=== PATIENT | female | born 1950 | race Caucasian/White ===

== ENCOUNTER 2025-04-15 12:12 | Inpatient (IN) ==
[2025-04-15 12:39] LABS: Hematocrit (blood only) 27.9 % (37.0-47.0); Hemoglobin 8.1 g/dl (12.0-16.0); Immature Granulocytes # (auto) 0.06 K/uL (0.01-0.20); Immature Granulocytes % (auto) 0.5 %; Mean Corpuscular Hemoglobin 18.4 pg (25.0-34.0); Mean Corpuscular Volume 63.3 fL (80.0-100.0); RDW Standard Deviation 42.3 fL (36.4-46.3); Red Blood Count 4.41 M/uL (4.20-5.40); White Blood Count 11.62 K/ul (4.8-10.8)
[2025-04-15 12:42] LABS: Platelet Count 628 K/uL (130-400)
[2025-04-15 12:59] LABS: Microcytosis Present; Ovalocytes 1+; Spherocytes 1+
[2025-04-15] MEDS: ACETAMINOPHEN 1,000 MG/100 ML VIAL IV STA (12:59)
[2025-04-15] MEDS: ONDANSETRON INJ 2 MG/ML 2 ML VIAL IV STA (12:59)
[2025-04-15 13:02] LABS: Alanine Aminotransferase 9.0 U/L (7-52); Albumin Globulin Ratio 1.0 (0.9-2); Alkaline Phosphatase 55.0 U/L (34-104); Anion Gap 14.0 (3-11); Bilirubin,Total 0.5 mg/dl (0.2-1.0); Blood Urea Nitrogen 12.0 mg/dl (6-23); Calcium 9.5 mg/dl (8.6-10.3); Carbon Dioxide 29.0 mmol/L (21-32); Chloride 91.0 mmol/L (98-107); Creatinine Clr Calc Pharmacy 51.5 ml/min; Globulin 3.6 gm/dl (2.5-4.0); Glucose 142.0 mg/dl (70-99(Fasting)); Lipase 33.0 U/L (11-82); Potassium 2.6 mmol/L (3.5-5.1); Sodium 134.0 mmol/L (136-145); Total Protein 7.3 gm/dl (6.0-8.3)
[2025-04-15] MEDS: OPTIRAY 320 100ml IV ONE (13:16)
--- NOTE | 2025-04-15 13:17 | XRay Report ---
XR chest 1V portable CLINICAL HISTORY: chest pain COMPARISON STUDY: None FINDINGS: Left cardiac pacemaker is present. Heart size and pulmonary vasculature are normal. No cons olidation or pleural effusion. No pneumothorax. IMPRESSION: No acute findings. ACT 112: Negative or not required by law. Electronically signed by: Shashank Vyas M.D. 04/15/2025 1:15 PM
[2025-04-15 13:24] LABS: Appearance Urine Clear (Clear); Bacteria Urine Automated None Seen (None Seen); Cast Urine Automated 0-2 /lpf (0-2); Glucose Urine UA Negative (Negative); RBC Urine Automated 0-2 /hpf (0-2)
[2025-04-15] MEDS: SODIUM CHLORIDE 0.9% 1,000 ML IV ONE (13:24)
[2025-04-15] MEDS: POTASSIUM CHLORIDE / WTR 10 MEQ/100 ML PLCT IV SCH ×3 (13:24→23:26)
--- NOTE | 2025-04-15 13:28 | Emergency Department Note ---
ED Visit Note I was consulted by the Advanced Practice Provider, GUADALUPE Smith. I personally made/approved the management plan and take responsibility for the patient management. I performed a substantive portion of the visit. This includes the aspects of: -History/Physical/Personally seeing the patient -MDM .
--- NOTE | 2025-04-15 13:44 | CT Scan Report ---
ABDOMEN AND PELVIS CT WITH IV CONTRAST CT DOSE: 1135.68 mGy.cm HISTORY: Acute lower abdominal pain with diarrhea lower abd pain TECHNIQUE: Multiaxial CT images of the abdomen and pelvis were performed following the IV administrat ion of 93 cc of Optiray, A dose lowering technique was utilized adhering to the principles of ALARA. COMPARISON STUDY: None. FINDINGS: Cardiomegaly with partially imaged pacer leads. Clustered tree-in-bud nodules of the basal right lower lobe measure up to 4 mm. This is nonspecific, favored to be infectious or inflammatory. N o pneumatosis or pneumoperitoneum. Unremarkable spleen, pancreas, adrenal glands and liver. Tiny gall stone. No CT evidence of acute cholecystitis. There is patency of the hepatic and portal veins. There are a few hypodense foci of the kidneys measuring up to 12 mm in the left which are nonspecific. The se measure slightly above water attenuation. Decompressed bladder with wall thickening. Uterus is lik toma surgically absent. No abdominal aortic aneurysm. Nonspecific mildly enlarged right iliac chain ly mph node measures 11 mm in image 251. Trace free pelvic fluid. Colonic diverticulosis without acute diverticulitis. The cecum is displaced within the left mid abdomen and there is an ileocecal intussusception. Wall thickening of the distal ileum and cecum is noted with adjacent interloop edema and increased enhancement of the bowel paul. Enlarged lymph nodes in the ileocolic mesentery measuring up to 1.9 x 1.4 cm. No bone lesions. Unrema rkable soft tissues. : IMPRESSION: 1. The cecum is present within the left mid abdomen and there is an ileocolic intussusception. Associ ated wall thickening at the intussusception site is noted with mucosal hyperemia compatible with veno us engorgement. Mucosal mass serving as a lead point is the diagnosis of exclusion, however is not de finitively seen. Surgical consultation is needed. 2. No bowel obstruction, pneumatosis or pneumoperitoneum. 3. Pathologically enlarged ileocolic and right iliac chain lymph nodes. ACT 112: Positive. There are findings on this exam that require communication between the performing entity and the patient following Patient Test Result Information Act ([place] Act 112) guidelines. The above report was generated using voice recognition software. It may contain grammatical, syntax o r spelling errors. Electronically signed by: Sam Merino M.D. 04/15/2025 1:43 PM
--- NOTE | 2025-04-15 14:59 | Emergency Department Note ---
Impression & Plan Intussusception, Anemia, Hypokalemia ED Provider Note CHIEF COMPLAINT: Lower abdominal pain HISTORY OF PRESENTING ILLNESS: Patient is a 75-year-old female presents to the emergency department today for lower abdominal pain. She states the pain does come and go in spurts but when it comes it is pretty severe where she is bending over. Her current pain is a 2/10. When the pain does get severe it is a 10/10. She reports moving her bowels and for the past 5 days has had diarrhea. She does have some associated nausea but no vomiting. She denies any fevers or chills. Denies any blood in her stool or urine. Denies any chest pain, shortness of breath, breathing difficulties. Patient does have a pacemaker that was placed at [facility] in [place]. She states that she has moved to the area from [place] a few years ago and has not really had much medical care while here aside from a cardiac issues. She does deny any surgical history to the abdomen. Last p.o. intake was this morning at 7 AM when she tried toast and a cup of tea. REVIEW OF SYSTEMS: See HPI for pertinent positives and pertinent negatives. ALLERGIES: See below MEDICATIONS: See below PAST MEDICAL HISTORY: See below PHYSICAL EXAM: VITALS: Vitals are noted on the nurse's note and reviewed by myself. GENERAL: Non toxic, in no acute distress, non-diaphoretic. SKIN: Capillary refill <2 sec. EYES: PERRLA. EOMI. Conjunctivae without injection, sclerae without icterus. NOSE: Patent without discharge. MOUTH: Mucous membranes moist. Uvula midline. Airway patent. NECK: Supple without nuchal rigidity. HEART: Regular rate and rhythm without murmurs gallops or rubs. LUNGS: Clear to auscultation bilaterally without wheezes, rales or rhonchi. No retractions or accessory muscle use. ABDOMEN: Positive bowel sounds x 4. Normal tympanic percussion. Soft, nontender to palpation. No masses or hepatosplenomegaly. Winn sign negative. No CVA tenderness. No guarding, rigidity, or rebound tenderness. No focal RLQ or LLQ tenderness. MUSCULOSKELETAL: Range of motion intact in all extremities. No gross musculoskeletal defects. NEURO: Patient was alert and oriented. No focal neurological deficits. DIFFERENTIAL DIAGNOSIS: Differential diagnosis includes appendicitis, diverticulitis, bowel obstruction, inflammatory bowel disease, renal colic, PUD, biliary pathology, pancreatitis, mesenteric ischemia, aortic pathology, infection, genitourinary, UTI, perforated viscus, among others. ED COURSE AND MEDICAL DECISION MAKING: HISTORY FROM INDEPENDENT HISTORIAN: History was provided by the patient. MONITOR: Continuous cardiac surgeon: Order was placed for continuous cardiac surgeon. Patient was placed on the cardiac surgeon and continuous pulse ox. Patient was noted to be in normal sinus rhythm at an initial rate of 70 bpm per my interpretation. EKG: EKG was interpreted by myself as atrial sensed ventricular paced rhythm with prolonged AV conduction at a rate of 73 bpm. INTERPRETATION OF LABS: I interpreted the labs with full lab results as below in the lab section of this note. Laboratory results pertinent to the emergent complaint are discussed in the MDM section below. The patient was advised to follow up with their PCP and/or specialist(s) for further outpatient monitoring and management of any abnormal results. INTERPRETATION OF IMAGING: Imaging studies were interpreted by myself and read by radiology as per the imaging section of this note. The patient was advised to follow up with their PCP and/or specialist(s) for further outpatient management of any non-emergent abnormal findings. CHRONIC MEDICAL/SOCIAL CONDITIONS AFFECTING CARE: No social concerns were identified as barriers to patients care. EXTERNAL RECORDS REVIEWED: Patient's cardiology records from [facility]. I also reviewed the patient's lab work from July to compare hemoglobin. ESCALATION OF CARE CONSIDERED: I considered admission on this patient due to the anemia and hypokalemia as well as the patient's ileocolic intussusception CONSULTATIONS: I had a meaningful discussion about this patient with Dr. Balbuena who agrees with my assessment and the treatment plan. I consulted with Dr. Prashanth Zapata from general surgery who recommends consulting consulting with [facility] Dr. Prashanth Zapata from general surgery who recommends consulting with [facility] first. I then consulted with Dr. Varma and Dr. Devine from [facility] who state that the patient would be fine for outpatient management if I felt she was stable enough. We otherwise could transfer her to [place] for surgery tomorrow morning by colorectal surgeon he will be there. SUMMARY: I examined the patient for complaints of lower abdominal pain. A physical exam and history were performed. Nursing notes, EMR, and medication list were personally reviewed. CBC showed a mild leukocytosis with a white blood cell count of 11.62, anemia with a hemoglobin of 8.1, platelet count of 628. CMP did show a sodium of 134, potassium of 2.6, chloride of 91, anion gap of 14, glucose of 142, AST of 12. Urinalysis did show +1 leukocytes, 11-20 white blood cells, negative nitrates. Chest x-ray showed no acute findings. CT of the abdomen and pelvis did show an ileocolic intussusception with wall thickening at the site. There is a mucosal mass serving as a lead point the diagnosis of exclusion. There is no bowel obstruction however there is bulky adenopathy. This does raise concern for carcinoma. The patient declines a history of any type of cancer. The patient was given 2- 10 mill equivalent bags of potassium IV in the emergency department with 1 L of normal saline. She was given a gram of IV Tylenol with improvement in pain and discomfort. She was also given Zofran 4 mg with improvement in nausea and vomiting. I discussed all these above findings with the patient who verbalized understanding. I did consult with Dr. Prashanth Zapata from general surgery who had recommended consulting with [facility]. I then contacted [facility] and spoke with Dr. Varma and Dr. Devine who feel the patient is suitable for outpatient follow-up for surgical consult or we can transfer her to [facility] for surgery tomorrow morning with the surgeon who will be there.. However with the patient's anemia and hypokalemia I felt this was not suitable for the patient at this time. I did call Dr. Zapata back who did then agree to see the patient and put her on the OR schedule for tomorrow morning. I then spoke with Gina Peters PA-C who spoke with Dr. Flores and the patient was accepted for admission to the hospital. DIAGNOSIS: Ileocolic intusseption, anemia, hypokalemia, diarrhea TREATMENT PLAN/DISCHARGE INSTRUCTIONS: Admit to hospitalist services under Dr. Rodriguez Past Med/Surg History Problem List (Updated 04/15/25 @ 15:39 by GUADALUPE Hui) Hypokalemia (Acute) Anemia (Acute) Intussusception (Acute) Medical History Depression Chronic kidney disease, stage 3a Hypertension Cardiac pacemaker in situ AV block, 3rd degree DANYEL (obstructive sleep apnea) COPD (chronic obstructive pulmonary disease) Dyslipidemia Type 2 diabetes mellitus Surgical History History of breast biopsy Family History Mother Hypertension Father Hypertension Heart disease Dyslipidemia Social History Smoking Status: Former smoker Tobacco Type: Cigarettes Smoking End Date: 1974; Do You Dip or Chew Tobacco: No; Hx Alcohol Use: No Hx Substance Use: No Preferred Language: Swazi Feels Safe at Home: Yes Allergies Allergies Allergy/AdvReac Type Severity Reaction Status Date / Time azithromycin [From Zithromax] Allergy Intermediate Verified 04/15/25 12:48 lisinopril Allergy Intermediate Verified 04/15/25 12:48 Penicillins Allergy Intermediate Verified 04/15/25 12:48 Home Meds Home Medications Medication Instructions Recorded Confirmed ezetimibe 10 mg tablet 0 mg PO DAILY 07/17/24 04/15/25 glipizide 10 mg tablet, extended 20 mg PO QAM 07/17/24 04/15/25 release 24 hr hydrochlorothiazide 25 mg tablet 25 mg PO DAILY 07/17/24 04/15/25 metformin 500 mg tablet,extended 500 - 1,000 mg PO DIRECTED 07/17/24 04/15/25 release 24 hr metoprolol tartrate 25 mg tablet 25 mg PO BID 07/17/24 04/15/25 rosuvastatin 40 mg tablet 40 mg PO DAILY 07/17/24 04/15/25 spironolactone 25 mg tablet 12.5 mg PO DAILY 07/17/24 04/15/25 albuterol sulfate 90 mcg/actuation 2 puff inhalation Q4H PRN Wheezing 04/15/25 04/15/25 aerosol inhaler hydralazine 25 mg tablet 25 mg PO TID 04/15/25 04/15/25 Results & Data (ED) Vital Signs Vital Signs - 24 hr 04/15/25 12:15 04/15/25 12:33 04/15/25 12:48 Temperature 36.7 C Temperature Source Temporal Artery Scan Pulse Rate 97 H 74 Pulse Rate [Apical] 74 Respiratory Rate 18 16 Respiratory Effort / Characteristics Non-Labored Spontaneous Non-Labored Spontaneous Respiratory Depth Normal Respiratory Pattern Regular Blood Pressure 114/76 Blood Pressure [Right Arm] 142/70 H Blood Pressure Mean 88 Blood Pressure Mean [Right Arm] 94 Blood Pressure Position [Right Arm] Pulse Oximetry 99 98 Oxygen Delivery Method Room Air Room Air Sepsis Recent Fever Within 48 Hours No Sepsis New/Unexplained Change in Mental Status N/A Sepsis Action Taken by Nursing No Action Required 04/15/25 14:13 04/15/25 16:00 Temperature Temperature Source Pulse Rate Pulse Rate [Apical] 69 70 Respiratory Rate 16 16 Respiratory Effort / Characteristics Non-Labored Spontaneous Non-Labored Spontaneous Respiratory Depth Respiratory Pattern Blood Pressure Blood Pressure [Right Arm] 111/71 124/76 Blood Pressure Mean Blood Pressure Mean [Right Arm] 84 92 Blood Pressure Position [Right Arm] Lying Pulse Oximetry 96 99 Oxygen Delivery Method Room Air Room Air Sepsis Recent Fever Within 48 Hours Sepsis New/Unexplained Change in Mental Status Sepsis Action Taken by Nursing Laboratory Data 04/15/25 12:20 04/15/25 12:20 Lab Results 04/15/25 04/15/25 04/15/25 Range/Units 12:20 13:03 13:56 WBC 11.62 H (4.8-10.8) K/ul RBC 4.41 (4.20-5.40) M/uL Hgb 8.1 L (12.0-16.0) g/dl Hct 27.9 L (37.0-47.0) % MCV 63.3 L (80.0-100.0) fL MCH 18.4 L (25.0-34.0) pg MCHC 29.0 L (32.0-36.0) g/dL RDW Std Deviation 42.3 (36.4-46.3) fL RDW Coeff of Falguni 19.7 H (11.5-14.5) % Plt Count 628 H (130-400) K/uL MPV 8.4 L (9.4-12.4) fL Immature Gran % (Auto) 0.5 % Neut % (Auto) 74.0 % Lymph % (Auto) 15.0 % [place] % (Auto) 9.3 % Eos % (Auto) 0.7 % Baso % (Auto) 0.5 % Neut # (Auto) 8.60 H (1.40-6.50) K/uL Lymph # (Auto) 1.74 (1.20-3.40) K/uL [place] # (Auto) 1.08 H (0.11-0.59) K/uL Eos # (Auto) 0.08 (0.00-0.50) K/uL Baso # (Auto) 0.06 (0.00-0.20) K/uL Immature Gran # (Auto) 0.06 (0.01-0.20) K/uL Microcytosis Present Spherocytes 1+ Ovalocytes 1+ Sodium 134 L (136-145) mmol/L Potassium 2.6 L (3.5-5.1) mmol/L Chloride 91 L (98-107) mmol/L Carbon Dioxide 29 (21-32) mmol/L Anion Gap 14 H (3-11) BUN 12 (6-23) mg/dl Creatinine 0.97 (0.6-1.2) mg/dl Est Cr Clr Drug Dosing 51.5 ml/min eGFR 60.56 BUN/Creatinine Ratio 12.4 (10-20) Glucose 142 H (70-99(Fasting)) mg/dl Calcium 9.5 (8.6-10.3) mg/dl Total Bilirubin 0.5 (0.2-1.0) mg/dl AST 12 L (13-39) U/L ALT 9 (7-52) U/L Alkaline Phosphatase 55 (34-104) U/L Troponin I High Sens 10.1 (0-14) pg/ml Total Protein 7.3 (6.0-8.3) gm/dl Albumin 3.7 (3.4-5.0) gm/dl Globulin 3.6 (2.5-4.0) gm/dl Albumin/Globulin Ratio 1.0 (0.9-2) Lipase 33 (11-82) U/L Urine Color Yellow Urine Appearance Clear (Clear) Urine pH >= 9.0 H (4.5-7.5) Ur Specific [place] 1.017 (1.000-1.030) Urine Protein 2+ H (Negative) Urine Glucose (UA) Negative (Negative) Urine Ketones Trace H (Negative) Urine Blood Negative (Negative) Urine Nitrite Negative (Negative) Urine Bilirubin Negative (Negative) Urine Urobilinogen Positive H (Negative) Ur Leukocyte Esterase 1+ H (Negative) Urine WBC (Auto) 11-20 H (0-5) /hpf Urine RBC (Auto) 0-2 (0-2) /hpf U Hyaline Cast (Auto) 0-2 (0-2) /lpf U Epithel Cells (Auto) 6-10 H (0-2) /hpf Urine Bacteria (Auto) None Seen (None Seen) Urine Comment Blood Type AB Positive Antibody Screen NEGATIVE Administered Medications Discontinued Medications Acetaminophen (Ofirmev) 1,000 mg in 100 mls @ 400 mls/hr IV NOW STA Stop: 04/15/25 13:04 Last Infusion: 04/15/25 13:16 Dose: Infused Documented By: Admin: 04/15/25 12:59 Dose: 400 mls/hr Documented By: URVASHI Potassium Chloride (K Arnulfo / Wtr) 10 meq in 100 mls @ 100 mls/hr IV Q1H DAMIR Stop: 04/15/25 15:14 Last Infusion: 04/15/25 15:49 Dose: Infused Documented By: Admin: 04/15/25 15:21 Dose: 100 mls/hr Documented By: Infusion: 04/15/25 14:42 Dose: Infused Documented By: Admin: 04/15/25 13:24 Dose: 100 mls/hr Documented By: TEVIN Sodium Chloride (Nss) 1,000 mls @ 500 mls/hr IV .Q2H ONE Stop: 04/15/25 15:04 Last Infusion: 04/15/25 15:49 Dose: Infused Documented By: Admin: 04/15/25 13:24 Dose: 500 mls/hr Documented By: TEVIN Ioversol (Optiray 320 100ml) 93 ml IV ONCE ONE Stop: 04/15/25 13:17 Last Admin: 04/15/25 13:16 Dose: 93 ml Documented By: EVAN Ondansetron HCl (Ondansetron Inj 2 Mg/Ml 2 Ml Vial) 4 mg IV NOW STA Stop: 04/15/25 12:51 Last Admin: 04/15/25 12:59 Dose: 4 mg Documented By: URVASHI Imaging Data Radiologist's Impression: Abdomen/Pelvis CT 04/15/25 12:[address] WITH IV CONTRAST CT DOSE: 1135.68 mGy.cm HISTORY: Acute lower abdominal pain with diarrhea lower abd pain TECHNIQUE: Multiaxial CT images of the abdomen and pelvis were performed following the IV administration of 93 cc of Optiray, A dose lowering technique was utilized adhering to the principles of ALARA. COMPARISON STUDY: None. FINDINGS: Cardiomegaly with partially imaged pacer leads. Clustered tree-in-bud nodules of the basal right lower lobe measure up to 4 mm. This is nonspecific, favored to be infectious or inflammatory. No pneumatosis or pneumoperitoneum. Unremarkable spleen, pancreas, adrenal glands and liver. Tiny gallstone. No CT evidence of acute cholecystitis. There is patency of the hepatic and portal veins. There are a few hypodense foci of the kidneys measuring up to 12 mm in the left which are nonspecific. These measure slightly above water attenuation. Decompressed bladder with wall thickening. Uterus is likely surgically absent. No abdominal aortic aneurysm. Nonspecific mildly enlarged right iliac chain lymph node measures 11 mm in image 251. Trace free pelvic fluid. Colonic diverticulosis without acute diverticulitis. The cecum is displaced within the left mid abdomen and there is an ileocecal intussusception. Wall thickening of the distal ileum and cecum is noted with adjacent interloop edema and increased enhancement of the bowel paul. Enlarged lymph nodes in the ileocolic mesentery measuring up to 1.9 x 1.4 cm. No bone lesions. Unremarkable soft tissues. : IMPRESSION: 1. The cecum is present within the left mid abdomen and there is an ileocolic intussusception. Associated wall thickening at the intussusception site is noted with mucosal hyperemia compatible with venous engorgement. Mucosal mass serving as a lead point is the diagnosis of exclusion, however is not definitively seen. Surgical consultation is needed. 2. No bowel obstruction, pneumatosis or pneumoperitoneum. 3. Pathologically enlarged ileocolic and right iliac chain lymph nodes. ACT 112: Positive. There are findings on this exam that require communication between the performing entity and the patient following Patient Test Result Information Act ([place] Act 112) guidelines. The above report was generated using voice recognition software. It may contain grammatical, syntax or spelling errors. Electronically signed by: Sam Merino M.D. 04/15/2025 1:43 PM Chest X-Ray 04/15/25 12:49 XR chest 1V portable CLINICAL HISTORY: chest pain COMPARISON STUDY: None FINDINGS: Left cardiac pacemaker is present. Heart size and pulmonary vasculature are normal. No consolidation or pleural effusion. No pneumothorax. IMPRESSION: No acute findings. ACT 112: Negative or not required by law. Electronically signed by: Shashank Vyas M.D. 04/15/2025 1:15 PM Discharge Plan Visit Data Chief Complaint: Abdominal Pain Stated Complaint: pain in abdomen, diarreha, lightheadiness ED Provider: Virgil Balbuena ED Midlevel Provider: Allegra Persaud Discharge Problem: Intussusception, Anemia, Hypokalemia Patient Disposition: Admitted As Inpatient Condition: Good Forms Stand Alone Forms: My [facility] [employer] Prescriptions Prescriptions: No Action hydralazine 25 mg tablet 25 mg PO TID albuterol sulfate 90 mcg/actuation HFA aerosol inhaler 2 puff INHALATION Q4H PRN (Reason: Wheezing) glipizide 10 mg tablet extended release 24hr 20 mg PO QAM spironolactone 25 mg tablet 12.5 mg PO DAILY hydrochlorothiazide 25 mg tablet 25 mg PO DAILY metformin 500 mg tablet extended release 24 hr 500 - 1,000 mg PO DIRECTED Patient Comments: Take 500mg in the morning and 1000mg in the evening ezetimibe 10 mg tablet 0 mg PO DAILY Patient Comments: Last filled 12/29/24 x90 day supply. Unable to verify if pt still taking. Original Directions: 10mg by mouth once daily rosuvastatin 40 mg tablet 40 mg PO DAILY metoprolol tartrate 25 mg tablet 25 mg PO BID Referrals Referrals: Delores Gonzalez DO [Primary Care Provider] - Discharge Problem: Anemia Qualifiers: Anemia type: unspecified type Qualified Code(s): D64.9 - Anemia, unspecified
--- NOTE | 2025-04-15 15:12 | History & Physical Report ---
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 Intussusception Patient presented with abdominal pain x4 days with associated diarrhea CT abdomen revealed ileocolic intussusception with associated wall thickening consistent with venous engorgement and concerning for mucosal mass Surgery consulted and planning for OR in the am for ex lap and hemicolectomy Clear liquid diet until midnight NPO at midnight Pain control with IV tylenol and morphine PRN Anemia Hgb 8.1 here (7.9 yesterday outpatient) which is a drop from previous in Jul 2024 around 12-13 Patient is symptomatic with lightheadedness but hemodynamically stable Recheck H&H at 2200 and in am Transfuse if Hgb <7 Iron studies, vitamin B12, folate in am Hypokalemia K 2.6 on admission Likely secondary to diuretics and diarrhea Received repletion Recheck K at 2200 and in am Continue to replete as needed Hold diuretics Diarrhea Patient reports x20 episodes per day of diarrhea x4 days Could be secondary to intussusception, metformin use, senna use Obtain stool PCR MIVF Type 2 diabetes Hold home metformin and glipizide BSG ACHS and SSI while inpatient Hypertension Continue hydralazine and metoprolol Home diuretics on hold due to hypokalemia and dehydration Dyslipidemia Continue rosuvastatin Cardiac pacemaker in situ Continue baby aspirin DANYEL CPAP HS DVT Prophylaxis: SCDs due to OR tomorrow Code Status: FULL CODE - As per discussion at bedside with the patient. PCP: Delores Gonzalez Disposition: admit to [facility] Patient seen in collaboration with Dr Flores. Please see addendum. I spent a total of 60 minutes coordinating, documenting and providing care for this patient excluding time spent in the performance of separately billed services or time spent by another provider/QHP. 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 She reports sharp lower abdominal pain that is intermittent and associated with diarrhea and nausea without vomiting. The pain is severe when it is there. She has been taking senna on an as needed basis to have bowel movements because she is constipated and thinks it is from her diabetes medication. She usually has one episode of loose stools after senna that subsides. She notes over the last four days, she has had up to 20 episodes of loose diarrhea daily. She denies recent travel or antibiotic use. She also reports feeling lightheaded for the last month, particularly with exertion, but this has been worse over the last few days as well. Denies any syncope. She presented to the PCP yesterday for the abdominal pain, diarrhea, and lightheadedness and was ordered labs and a KUB which showed moderate fecal retention. She sought evaluation in our ED because her symptoms have not improved. Denies fevers, chills, chest pain, SOB, dysuria, hematuria, hematochezia, other signs of bleeding. Allergies Allergy/AdvReac Type Severity Reaction Status Date / Time azithromycin [From Zithromax] Allergy Intermediate Verified 04/15/25 12:48 lisinopril Allergy Intermediate Verified 04/15/25 12:48 Penicillins Allergy Intermediate Verified 04/15/25 12:48 Home Medications Medication Instructions Recorded Confirmed Type glipizide 10 mg tablet, extended 20 mg PO QAM 07/17/24 04/15/25 History release 24 hr hydrochlorothiazide 25 mg tablet 25 mg PO DAILY 07/17/24 04/15/25 History metformin 500 mg tablet,extended 500 - 1,000 mg PO DIRECTED 07/17/24 04/15/25 History release 24 hr metoprolol tartrate 25 mg tablet 25 mg PO BID 07/17/24 04/15/25 History rosuvastatin 40 mg tablet 20 mg PO DAILY 07/17/24 04/15/25 History spironolactone 25 mg tablet 12.5 mg PO DAILY 07/17/24 04/15/25 History albuterol sulfate 90 mcg/actuation 2 puff inhalation Q4H PRN Wheezing 04/15/25 04/15/25 History aerosol inhaler aspirin 81 mg chewable tablet 81 mg PO HS 04/15/25 04/15/25 History hydralazine 25 mg tablet 25 mg PO TID 04/15/25 04/15/25 History Past Med/Surg History Problem List (Updated 04/15/25 @ 16:52 by GUADALUPE Wyatt) Diarrhea Hypokalemia (Acute) Anemia (Acute) Intussusception (Acute) Medical History Depression Chronic kidney disease, stage 3a Hypertension Cardiac pacemaker in situ AV block, 3rd degree DANYEL (obstructive sleep apnea) COPD (chronic obstructive pulmonary disease) Dyslipidemia Type 2 diabetes mellitus Surgical History History of breast biopsy Family History Mother Hypertension Father Hypertension Heart disease Dyslipidemia Social History Smoking Status: Former smoker Tobacco Type: Cigarettes Smoking End Date: 1974; Do You Dip or Chew Tobacco: No; Hx Alcohol Use: No Hx Substance Use: No Preferred Language: Bhutanese Feels Safe at Home: Yes Review of Systems Review of Systems: All systems reviewed & are unremarkable except as noted in HPI & below Physical Exam Physical Exam: General/Psych: WD/WN, sitting up in bed, NAD, conversing easily, euthymic affect Head: normocephalic, atraumatic Eyes: normal inspection, PERRL, conjunctivae pink, anicteric sclerae ENT: external ear and nose normal, oropharynx normal Neck: normal visual inspection, trachea midline, no thyromegaly Respiratory: normal respiratory effort, lungs clear to auscultation, no wheeze/rales/rhonchi, no accessory muscle use Cardiovascular: regular rate and rhythm, no murmur/rub/gallop, no JVD Extremities: no cyanosis or clubbing, normal peripheral pulses, no BLE edema Abdomen/GI: normal bowel sounds, soft, tender on palpation of lower quadrants Neurologic/MSK: A+Ox3, motor strength 5/5, moves all extremities Skin: no rashes, normal color, warm and dry Results & Data Results & Data Vital Signs (Past 12 Hours) Vital Signs Temp Pulse Pulse Resp BP BP Pulse Ox 04/15/25 14:13 69 16 111/71 96 04/15/25 12:48 74 04/15/25 12:33 74 16 142/70 H 98 04/15/25 12:15 36.7 C 97 H 18 114/76 99 O2 Del Method 04/15/25 14:13 Room Air 04/15/25 12:48 04/15/25 12:33 Room Air 04/15/25 12:15 Room Air Laboratory Results Short CBC 04/15/25 Range/Units 12:20 WBC 11.62 H (4.8-10.8) K/ul Hgb 8.1 L (12.0-16.0) g/dl Hct 27.9 L (37.0-47.0) % Plt Count 628 H (130-400) K/uL BMP 04/15/25 12:20 Sodium 134 L Potassium 2.6 L Chloride 91 L Carbon Dioxide 29 BUN 12 Creatinine 0.97 Glucose 142 H Calcium 9.5 Liver Function 04/15/25 Range/Units 12:20 Total Bilirubin 0.5 (0.2-1.0) mg/dl AST 12 L (13-39) U/L ALT 9 (7-52) U/L Alkaline Phosphatase 55 (34-104) U/L Albumin 3.7 (3.4-5.0) gm/dl Urine 04/15/25 Range/Units 13:03 Urine Color Yellow Urine Appearance Clear (Clear) Urine pH >= 9.0 H (4.5-7.5) Ur Specific [place] 1.017 (1.000-1.030) Urine Protein 2+ H (Negative) Urine Glucose (UA) Negative (Negative) I have independently reviewed and interpreted patient's admitting labs including CBC, CMP, PTT, PT/INR, mag and troponin. Diagnostic Findings Abdomen/Pelvis CT 04/15/25 12:[address] WITH IV CONTRAST CT DOSE: 1135.68 mGy.cm HISTORY: Acute lower abdominal pain with diarrhea lower abd pain TECHNIQUE: Multiaxial CT images of the abdomen and pelvis were performed following the IV administration of 93 cc of Optiray, A dose lowering technique was utilized adhering to the principles of ALARA. COMPARISON STUDY: None. FINDINGS: Cardiomegaly with partially imaged pacer leads. Clustered tree-in-bud nodules of the basal right lower lobe measure up to 4 mm. This is nonspecific, favored to be infectious or inflammatory. No pneumatosis or pneumoperitoneum. Unremarkable spleen, pancreas, adrenal glands and liver. Tiny gallstone. No CT evidence of acute cholecystitis. There is patency of the hepatic and portal veins. There are a few hypodense foci of the kidneys measuring up to 12 mm in the left which are nonspecific. These measure slightly above water attenuation. Decompressed bladder with wall thickening. Uterus is likely surgically absent. No abdominal aortic aneurysm. Nonspecific mildly enlarged right iliac chain lymph node measures 11 mm in image 251. Trace free pelvic fluid. Colonic diverticulosis without acute diverticulitis. The cecum is displaced within the left mid abdomen and there is an ileocecal intussusception. Wall thickening of the distal ileum and cecum is noted with adjacent interloop edema and increased enhancement of the bowel paul. Enlarged lymph nodes in the ileocolic mesentery measuring up to 1.9 x 1.4 cm. No bone lesions. Unremarkable soft tissues. : IMPRESSION: 1. The cecum is present within the left mid abdomen and there is an ileocolic intussusception. Associated wall thickening at the intussusception site is noted with mucosal hyperemia compatible with venous engorgement. Mucosal mass serving as a lead point is the diagnosis of exclusion, however is not definitively seen. Surgical consultation is needed. 2. No bowel obstruction, pneumatosis or pneumoperitoneum. 3. Pathologically enlarged ileocolic and right iliac chain lymph nodes. ACT 112: Positive. There are findings on this exam that require communication between the performing entity and the patient following Patient Test Result Information Act ([place] Act 112) guidelines. The above report was generated using voice recognition software. It may contain grammatical, syntax or spelling errors. Electronically signed by: Sam Merino M.D. 04/15/2025 1:43 PM Chest X-Ray 04/15/25 12:49 XR chest 1V portable CLINICAL HISTORY: chest pain COMPARISON STUDY: None FINDINGS: Left cardiac pacemaker is present. Heart size and pulmonary vasculature are normal. No consolidation or pleural effusion. No pneumothorax. IMPRESSION: No acute findings. ACT 112: Negative or not required by law. Electronically signed by: Shashank Vyas M.D. 04/15/2025 1:15 PM ECG Additional Comments: I have independently reviewed and interpreted patient's admitting EKG which revealed: atrial-sensed ventricular-paced rhythm at rate of 73 bpm Code Status & VTE Plan Code Status Full Code Supervising Physician Co-Signing Physician Notes Patient seen and examined independently. Discussed with above provider. Patient presented to the hospital with abdominal pain/discomfort. She was found to have iron deficiency anemia, hypokalemia. CT abdomen/pelvis showed possibly ileocolic intussusception. Surgery evaluated the patient; plan for right hemicolectomy tomorrow a.m. Ordered IV potassium for replenishment. Blood consent taken. Transfuse if hemoglobin is less than 7 g/dL. I have reviewed the advanced practitioner's documentation, and I agree with, and take responsibility for the plan of care I spent a total of 30 minutes coordinating, documenting, and providing care for this patient excluding time spent in the performance of separately billed services. All of the aforementioned completed while collaborating with the assigned advanced practitioner for a full treatment plan
--- NOTE | 2025-04-15 15:19 | Surgery Consultation ---
Date of Consultation April 15, 2025 Assessment & Plan (1) Intussusception: Her CT images and results were personally viewed and interpreted by myself She does have what appears to be an ileocolonic intussusception, this is malignant until proven otherwise I did have the ER reach out to tertiary care center who was not able to accommodate the patient She is not in any extremis at this point and is hypokalemic and anemic Will plan on an exploratory laparotomy and right hemicolectomy tomorrow pending her clinical course She is being admitted to the medical team and can have some clear liquids tonight and then be made n.p.o. after midnight History of Present Illness Reason for Consultation: Ileocolonic intussusception History of Present Illness This is a 75-year-old female who came to the hospital today with lower abdominal pain that shot across her abdomen over the last several days. This was sharp in nature and has been slowly worsening over that time. She states she did have a little bit of nausea without emesis. She had some outpatient labs and an x-ray. She did look up the labs on her portal and they were abnormal and was told to come to the ER for further evaluation. She denies any fevers or chills. She denies any previous abdominal surgeries. She states her last colonoscopy was in 2013 and showed diverticulosis and 3 polyps. She is having bowel movements and has had some diarrhea. She states just more recently she has stopped passing some flatus. Allergies Allergy/AdvReac Type Severity Reaction Status Date / Time azithromycin [From Zithromax] Allergy Intermediate Verified 04/15/25 12:48 lisinopril Allergy Intermediate Verified 04/15/25 12:48 Penicillins Allergy Intermediate Verified 04/15/25 12:48 Home Medications Medication Instructions Recorded Confirmed Type ezetimibe 10 mg tablet mg 07/17/24 07/17/24 History glipizide 10 mg tablet, extended mg PO 07/17/24 07/17/24 History release 24 hr hydralazine 50 mg tablet mg 07/17/24 07/17/24 History hydrochlorothiazide 25 mg tablet mg 07/17/24 07/17/24 History ketorolac 10 mg tablet mg 07/17/24 07/17/24 History metformin 500 mg tablet,extended mg PO 07/17/24 07/17/24 History release 24 hr metoprolol tartrate 25 mg tablet mg 07/17/24 07/17/24 History oxycodone 5 mg tablet 5 mg PO Q6H PRN pain #10 tabs 07/17/24 Rx prednisone 10 mg tablet 10 mg PO DAILY #4 tabs 07/17/24 Rx rosuvastatin 40 mg tablet mg 07/17/24 07/17/24 History spironolactone 25 mg tablet mg 07/17/24 07/17/24 History tizanidine 4 mg tablet mg 07/17/24 07/17/24 History Patient History Medical History Depression Chronic kidney disease, stage 3a Hypertension Cardiac pacemaker in situ AV block, 3rd degree DANYEL (obstructive sleep apnea) COPD (chronic obstructive pulmonary disease) Dyslipidemia Type 2 diabetes mellitus Surgical History History of breast biopsy Family History Mother Hypertension Father Hypertension Heart disease Dyslipidemia Social History Smoking Status: Former smoker Tobacco Type: Cigarettes Smoking End Date: 1974; Do You Dip or Chew Tobacco: No; Hx Alcohol Use: No Hx Substance Use: No Preferred Language: Gibraltarian Feels Safe at Home: Yes Review of Systems Constitutional: no fever and no chills Eyes: no blind spots and no corrective lenses Ear, Nose, Mouth, Throat: no ear pain and no hearing loss Respiratory: no cough and no dyspnea Cardiovascular: no chest pain and no dyspnea on exertion Gastrointestinal: + abdominal pain, + nausea and + diarrhe a/loose stools; no vomiting and no constipation Genitourinary: no dysuria and no urinary urgency Musculoskeletal: no back pain and no neck pain Integumentary: no acne and no new lesions Neurologic: no gait abnormality, no confusion and no memory loss Psychiatric: no behavioral changes and no depression Hematologic / Lymphatic: no easy bleeding and no easy bruising Physical Exam Constitutional: WD/WN, vitals as above Eyes: PERRL, conjunctivae normal, anicteric sclerae ENMT: external ear and nose normal, oropharynx normal Neck: trachea midline, no thyromegaly Respiratory: normal respiratory effort, lungs clear to auscultation Cardiovascular: RRR, no murmur, no edema Gastrointestinal (Abdomen): Inspection/Auscultation: abdomen normal to inspection; abdomen not distended Percussion/Palpation: + abdomen tender (Left upper abdomen) and abdomen soft; no guarding and no hernia Musculoskeletal: no cyanosis or clubbing, extremities motor strength 5/5 Skin: no rashes, warm and dry Neurologic: PERRL, EOMI, accommodation nl, no face palsy, no dysarthria Psychiatric: A+Ox3, euthymic affect Results & Data Vital Signs (Past 12 Hours) Vital Signs Temp Pulse Pulse Resp BP BP Pulse Ox 04/15/25 14:13 69 16 111/71 96 04/15/25 12:48 74 04/15/25 12:33 74 16 142/70 H 98 04/15/25 12:15 36.7 C 97 H 18 114/76 99 O2 Del Method 04/15/25 14:13 Room Air 04/15/25 12:48 04/15/25 12:33 Room Air 04/15/25 12:15 Room Air PG Care Time/CCT Total # of Minutes Spent Total Time Spent with Patient: Total time spent is greater than 50% in coordination of care (as documented) at patient's floor/unit and/or counseling patient: Coding Level of Care Code 61448 INT INP/OBS CARE 3/75MIN Diagnoses Intussusception K56.1
[2025-04-15] MEDS: POTASSIUM CHLORIDE 40 MEQ in D5W AND NSS 1,000 ML IV SCH (17:08)
[2025-04-15] MEDS ORDERED: GLUCOSE 40% GEL 15 GM TUBE PO PRN (18:25)
[2025-04-15] MEDS ORDERED: CARBOHYDRATES FOR HYPOGLYCEMIA PO PRN (18:25)
[2025-04-15] MEDS ORDERED: GLUCOSE 10 TAB/TUBE PO PRN (18:25)
[2025-04-15] MEDS ORDERED: DEXTROSE 50% 50 ML SYRINGE IV PRN (18:25)
[2025-04-15] MEDS ORDERED: GLUCAGON FOR INJ 1 MG VIAL SQ PRN (18:25)
[2025-04-15] MEDS ORDERED: SODIUM CHLORIDE 0.9% 1,000 ML IV SCH (18:25)
[2025-04-15] MEDS: POTASSIUM CHLORIDE 40 MEQ in SODIUM CHLORIDE 0.9% 1,000 ML IV SCH (21:20)
[2025-04-15] MEDS: INSULIN ASPART PER UNIT CHARGE SC SCH (21:24)
[2025-04-15] MEDS: ASPIRIN 81 MG ECTAB PO SCH (21:25)
[2025-04-15] MEDS: METOPROLOL TARTRATE 25 MG TAB PO SCH (21:25)
[2025-04-15 21:52] LABS: Hematocrit (blood only) 25.0 % (37.0-47.0); Hemoglobin 7.3 g/dl (12.0-16.0)
[2025-04-16] MEDS: MoRPHine SULFATE 2 MG/ML CARP IV PRN (01:35)
[2025-04-16 03:15] LABS: Adenovirus F 40/41 PCR Not Detected (NotDetected); Campylobacter PCR Not Detected (NotDetected); Enteroaggregative E.coli(EAEC) Not Detected (NotDetected); Shiga-like Toxin E.coli (STEC) Not Detected (NotDetected); Vibrio species PCR Not Detected (NotDetected)
[2025-04-16] MEDS: ROSUVASTATIN CALCIUM 20 MG TAB PO SCH (07:55)
[2025-04-16 08:08] LABS: Hematocrit (blood only) 25.0 % (37.0-47.0); Hemoglobin 7.1 g/dl (12.0-16.0); Mean Corpuscular Hemoglobin 18.7 pg (25.0-34.0); Mean Corpuscular Volume 66.0 fL (80.0-100.0); Platelet Count 509 K/uL (130-400); RDW Standard Deviation 45.6 fL (36.4-46.3); Red Blood Count 3.79 M/uL (4.20-5.40); White Blood Count 8.33 K/ul (4.8-10.8)
[2025-04-16] MEDS ORDERED: Nursing to Pharmacy Communication SCH ×3 (08:15→22:00)
[2025-04-16 08:47] LABS: Anion Gap 8.0 (3-11); Blood Urea Nitrogen 9.0 mg/dl (6-23); Calcium 8.6 mg/dl (8.6-10.3); Carbon Dioxide 26.0 mmol/L (21-32); Chloride 104.0 mmol/L (98-107); Creatinine Clr Calc Pharmacy 76.9 ml/min; Glucose 90.0 mg/dl (70-99(Fasting)); Iron 15.0 mcg/dl (35-150); Magnesium 1.7 mg/dl (1.7-2.4); Potassium 3.6 mmol/L (3.5-5.1); Sodium 138.0 mmol/L (136-145); Total Iron Binding Cap Calc 458.0 mcg/dl (250-450); Transferrin 327.0 mg/dl (200-360); Transferrin (FE) Percent Satur 3.0 % (15-50)
[2025-04-16 08:55] LABS: Vitamin B12 87.0 pg/ml (180-914)
--- NOTE | 2025-04-16 09:10 | Surgery Progress Note ---
Date of Service April 16, 2025 Assessment & Plan (1) Intussusception: Plan: She is chronically anemic and with this ileocolonic intussusception its likely a malignant lead point Will plan on an exploratory laparotomy, open right hemicolectomy today Consent was obtained, risk discussed including bleeding, infection, anastomotic leak, injury to surrounding structures Her potassium is improved today (2) Anemia: Admission and Anticipated Discharge Date Admission Date: April 15, 2025 Subjective Patient seen and examined. Still with some abdominal pain. She did have a bowel movement and passing gas earlier today. Afebrile. Review of Systems Constitutional: no fever and no chills Eyes: no blind spots and no corrective lenses Ear, Nose, Mouth, Throat: no ear pain and no hearing loss Respiratory: no cough and no dyspnea Cardiovascular: no chest pain and no dyspnea on exertion Gastrointestinal: + abdominal pain, + nausea and + diarrhe a/loose stools; no vomiting and no constipation Genitourinary: no dysuria and no urinary urgency Musculoskeletal: no back pain and no neck pain Integumentary: no acne and no new lesions Neurologic: no gait abnormality, no confusion and no memory loss Psychiatric: no behavioral changes and no depression Hematologic / Lymphatic: no easy bleeding and no easy bruising Physical Exam Constitutional: WD/WN, vitals as above Eyes: PERRL, conjunctivae normal, anicteric sclerae ENMT: external ear and nose normal, oropharynx normal Neck: trachea midline, no thyromegaly Respiratory: normal respiratory effort, lungs clear to auscultation Cardiovascular: RRR, no murmur, no edema Gastrointestinal (Abdomen): Inspection/Auscultation: abdomen normal to inspection; abdomen not distended Percussion/Palpation: + abdomen tender (Left upper abdomen) and abdomen soft; no guarding and no hernia Musculoskeletal: no cyanosis or clubbing, extremities motor strength 5/5 Skin: no rashes, warm and dry Neurologic: PERRL, EOMI, accommodation nl, no face palsy, no dysarthria Psychiatric: A+Ox3, euthymic affect Results & Data Vital Signs (Past 12 Hours) Vital Signs Temp Pulse Pulse Resp BP Pulse Ox O2 Del Method 04/16/25 08:02 Room Air, Nasal Cannula 04/16/25 07:56 36.6 C 78 126/69 93 Room Air 04/16/25 07:41 70 04/16/25 02:58 36.7 C 62 16 100/48 L 99 Nasal Cannula 04/16/25 00:40 84 04/15/25 23:30 36.7 C 65 14 97/61 L 93 Room Air O2 Flow Rate 04/16/25 08:02 2 04/16/25 07:56 04/16/25 07:41 04/16/25 02:58 2 04/16/25 00:40 04/15/25 23:30 PG Care Time/CCT Total # of Minutes Spent Total Time Spent with Patient: Total time spent is greater than 50% in coordination of care (as documented) at patient's floor/unit and/or counseling patient: Coding Level of Care Code 67720 SUB INP/OBS CARE 2/35MIN Diagnoses Intussusception K56.1 Anemia D64.9 Anemia type: unspecified type (2) Anemia Anemia type: unspecified type Qualified Code(s): D64.9 - Anemia, unspecified
[2025-04-16] MEDS: ACETAMINOPHEN 1,000 MG/100 ML VIAL IV PRN (09:46)
[2025-04-16] MEDS ORDERED: ONDANSETRON INJ 2 MG/ML 2 ML VIAL ONE ×2 (11:15→14:05)
[2025-04-16] MEDS ORDERED: DEXAMETHASONE SOD INJ 4 MG/ML VIAL ONE (11:15)
[2025-04-16] MEDS ORDERED: ROCURONIUM BROMIDE 10 MG/ML 5 ML VIAL IV ONE (11:15)
[2025-04-16] MEDS ORDERED: PROPOFOL IV EMULSION 10 MG/ML 20 ML VIAL IV ONE (11:15)
[2025-04-16] MEDS ORDERED: LIDOCAINE 2% 2 ML VIAL/AMP(20MG/ML) INFIL ONE (11:15)
[2025-04-16] MEDS: LACTATED RINGER'S 1,000 ML IV SCH (11:19)
[2025-04-16] MEDS ORDERED: SODIUM CHLORIDE 0.9% 100 ML IV PRN ×2 (11:35→12:51)
[2025-04-16] MEDS ORDERED: PROMETHAZINE HCL 6.25 MG in SODIUM CHLORIDE 0.9% 50 ML IV PRN (11:51)
[2025-04-16] MEDS ORDERED: ONDANSETRON INJ 2 MG/ML 2 ML VIAL IV PRN (11:51)
[2025-04-16] MEDS ORDERED: HYDROmorphone INJ 1 MG/ML SYRINGE IV PRN (11:51)
[2025-04-16] MEDS ORDERED: ATROPINE SULFATE 0.1 MG/ML 10ML SYR IV PRN (11:51)
--- NOTE | 2025-04-16 11:55 | Anesthesiology Consultation ---
Date of Service April 16, 2025 Assessment & Plan (1) Encounter for pre-operative examination: Chart Review Chart Review: Acceptable Risk for Surgery and Patient NOT seen in Pre Admission Testing Consults Requested none History Surgery Operation Date: 04/16/25 07:00 Proposed Procedures p Exploratory Laparotomy, - Prashanth Zapata DO s Hemicolectomy - Prashanth Zapata DO Height/Weight Height: 5 ft 4 in Weight: 83.4 kg Allergies Allergy/AdvReac Type Severity Reaction Status Date / Time azithromycin [From Zithromax] Allergy Intermediate Verified 04/15/25 12:48 lisinopril Allergy Intermediate Verified 04/15/25 12:48 Penicillins Allergy Intermediate Verified 04/15/25 12:48 Medications Home Medications Medication Instructions Recorded Confirmed Last Taken glipizide 10 mg tablet, extended 20 mg PO QAM 07/17/24 04/15/25 Unknown release 24 hr hydrochlorothiazide 25 mg tablet 25 mg PO DAILY 07/17/24 04/15/25 Unknown metformin 500 mg tablet,extended 500 - 1,000 mg PO DIRECTED 07/17/24 04/15/25 Unknown release 24 hr metoprolol tartrate 25 mg tablet 25 mg PO BID 07/17/24 04/15/25 Unknown rosuvastatin 40 mg tablet 20 mg PO DAILY 07/17/24 04/15/25 Unknown spironolactone 25 mg tablet 12.5 mg PO DAILY 07/17/24 04/15/25 Unknown albuterol sulfate 90 mcg/actuation 2 puff inhalation Q4H PRN Wheezing 04/15/25 04/15/25 Unknown aerosol inhaler aspirin 81 mg chewable tablet 81 mg PO HS 04/15/25 04/15/25 04/14/25 hydralazine 25 mg tablet 25 mg PO TID 04/15/25 04/15/25 Unknown Active Medications Generic Name Dose Route Start Last Admin Trade Name Freq PRN Reason Stop Dose Admin Aspirin 81 mg 04/15/25 21:00 04/15/25 21:25 Aspirin 81 Mg Ectab PO 05/15/25 20:59 81 mg HS DAMIR Administration Hydralazine HCl 25 mg 04/15/25 21:00 04/16/25 07:55 Hydralazine Hcl 25 Mg Tab PO 05/15/25 20:59 Not Given TID DAMIR Potassium Chloride 40 meq/ 1,020 mls @ 100 mls/hr 04/15/25 17:00 04/16/25 10:35 Sodium Chloride IV 04/18/25 16:59 100 mls/hr .[id number] DAMIR Infusion Acetaminophen 1,000 mg in 100 mls @ 400 mls/hr 04/15/25 21:00 04/16/25 10:01 Ofirmev IV 04/18/25 20:59 Infused Q8H PRN Infusion Mild Pain (Scale 1, 2, 3) Lactated Ringer's 1,000 mls @ 15 mls/hr 04/16/25 11:15 04/16/25 11:19 Lr IV 04/19/25 11:14 15 mls/hr .Q24H DAMIR Administration Metoprolol Tartrate 25 mg 04/15/25 21:00 04/16/25 07:51 Metoprolol Tartrate 25 Mg Tab PO 05/15/25 20:59 25 mg BID DAMIR Administration Morphine Sulfate 2 mg 04/15/25 18:25 04/16/25 01:35 Morphine Sulfate 2 Mg/Ml Carp IV 04/29/25 18:24 2 mg Q6 PRN Administration Mod-Sev Pain (Scale 4-10) Rosuvastatin Calcium 20 mg 04/16/25 09:00 04/16/25 07:55 Rosuvastatin Calcium 20 Mg Tab PO 05/16/25 08:59 Not Given DAILY DAMIR NPO Date Last Intake of Fluids: 04/16/25 Time Last Intake of Fluids: 07:50 Last Intake of Fluids Comment: sip with med Date Last Intake of Solids: 04/15/25 Time Last Intake of Solids: 07:00 Past Medical History Medical History (Updated 04/16/25 @ 11:54 by Isael Lozano MD) Anemia Hypokalemia Encounter for pre-operative examination Depression Chronic kidney disease, stage 3a Hypertension Cardiac pacemaker in situ AV block, 3rd degree DANYEL (obstructive sleep apnea) COPD (chronic obstructive pulmonary disease) Dyslipidemia Type 2 diabetes mellitus Intussusception Patient presented with abdominal pain x4 days with associated diarrhea CT abdomen revealed ileocolic intussusception with associated wall thickening consistent with venous engorgement and concerning for mucosal mass Surgery consulted and planning for OR in the am for ex lap and hemicolectomy Clear liquid diet until midnight NPO at midnight Pain control with IV tylenol and morphine PRN Anemia Hgb 8.1 here (7.9 yesterday outpatient) which is a drop from previous in Jul 2024 around 12-13 Patient is symptomatic with lightheadedness but hemodynamically stable Recheck H&H at 2200 and in am Transfuse if Hgb <7 Iron studies, vitamin B12, folate in am Hypokalemia K 2.6 on admission Likely secondary to diuretics and diarrhea Received repletion Recheck K at 2200 and in am Continue to replete as needed Hold diuretics Diarrhea Patient reports x20 episodes per day of diarrhea x4 days Could be secondary to intussusception, metformin use, senna use Obtain stool PCR MIVF Type 2 diabetes Hold home metformin and glipizide BSG ACHS and SSI while inpatient Past Family History Family History Mother Hypertension Father Hypertension Heart disease Dyslipidemia Past Surgical History Surgical History History of breast biopsy Social History Smoking Status: Former smoker Do You Dip or Chew Tobacco: No Smoking End Date: 1979 Hx Alcohol Use: Yes Alcohol type: beer and wine alcohol intake frequency: holidays/special occasions only Hx Substance Use: No substance use type: does not use Physical Exam Vital Signs Last Vital Signs Temp 36.8 C 04/16/25 11:01 Pulse 60 04/16/25 11:01 Resp 18 04/16/25 11:01 BP 123/56 L 04/16/25 11:01 Pulse Ox 99 04/16/25 11:01 O2 Del Method Room Air 04/16/25 11:01 O2 Flow Rate 2 04/16/25 08:02 Testing Laboratory Results 04/16/25 07:37 04/16/25 07:37 Urine Color Yellow 04/15/25 13:03 Urine Appearance Clear (Clear) 04/15/25 13:03 Urine pH >= 9.0 (4.5-7.5) H 04/15/25 13:03 Ur Specific [place] 1.017 (1.000-1.030) 04/15/25 13:03 Urine Protein 2+ (Negative) H 04/15/25 13:03 Urine Glucose (UA) Negative (Negative) 04/15/25 13:03 Urine Ketones Trace (Negative) H 04/15/25 13:03 Urine Nitrite Negative (Negative) 04/15/25 13:03 Ur Leukocyte Esterase 1+ (Negative) H 04/15/25 13:03 Urine WBC (Auto) 11-20 /hpf (0-5) H 04/15/25 13:03 Urine RBC (Auto) 0-2 /hpf (0-2) 04/15/25 13:03 U Hyaline Cast (Auto) 0-2 /lpf (0-2) 04/15/25 13:03 U Epithel Cells (Auto) 6-10 /hpf (0-2) H 04/15/25 13:03 Urine Bacteria (Auto) None Seen (None Seen) 04/15/25 13:03 Blood Type AB Positive 04/15/25 13:56 Antibody Screen NEGATIVE 04/15/25 13:56 04/16/25 07:58 POC Glucose 107 H Electrocardiogram Date: 04/15/25 Atrial-sensed ventricular paced rhythm with prolonged AV conduction Abnormal ECG HR 73 Chest X-Ray Date: 04/15/25 XR chest 1V portable CLINICAL HISTORY: chest pain COMPARISON STUDY: None FINDINGS: Left cardiac pacemaker is present. Heart size and pulmonary vasculature are normal. No consolidation or pleural effusion. No pneumothorax. IMPRESSION: No acute findings.
[2025-04-16 12:44] LABS: Folate (Folic Acid),Ser orPlas 14.68 ng/ml (>5.38)
[2025-04-16] MEDS ORDERED: MIDAZOLAM HCL 1 MG/ML 2ML VIAL ONE (12:55)
[2025-04-16] MEDS ORDERED: SUCCINYLCHOLINE CHLORIDE 20 MG/ML 10 ML VIAL IV ONE (12:55)
[2025-04-16] MEDS: cefOXitin 2,000 MG in DEXTROSE 5 % MINI-B 50 ML IV STA (13:12)
[2025-04-16] MEDS: INSULIN ASPART PER UNIT CHARGE SC SCH ×2 (13:14→20:21)
[2025-04-16] MEDS ORDERED: ePHEDrine sulfate 50 MG/5 ML SYR ONE (13:23)
[2025-04-16] MEDS ORDERED: PHENYLEPHRINE 100MCG/ML 5ML SYR ONE (13:28)
[2025-04-16] MEDS ORDERED: SUGAMMADEX SODIUM 200 MG/2 ML VIAL IV ONE (14:05)
[2025-04-16] MEDS ORDERED: HYDROmorphone INJ 2 MG/ML SYR/VIAL ONE (14:06)
--- NOTE | 2025-04-16 14:36 | Hospitalist Progress Note ---
Date of Service April 16, 2025 Assessment & Plan (1) Intussusception: (2) Anemia: (3) Diarrhea: (4) Hypokalemia: (5) Type 2 diabetes mellitus: (6) Hypertension: (7) Dyslipidemia: (8) DANYEL (obstructive sleep apnea): Plan 75 year old female with PMH significant for type 2 diabetes, dyslipidemia, CKD III, COPD, DANYEL, 3rd degree AV block s/p pacemaker, hypertension, and depression who presented to the ED on 04/15/2025 with abdominal pain x4 days and is being admitted for intussusception. Intussusception Patient presented with abdominal pain x4 days with associated diarrhea CT abdomen revealed ileocolic intussusception with associated wall thickening consistent with venous engorgement and concerning for mucosal mass Surgery consulted and planning for OR in the am for ex lap and hemicolectomy Plan for OR today. Pt is stable for OR Pain control with IV tylenol and morphine PRN Anemia Hgb 7.1 this am Patient has iron deficiency Patient is symptomatic with lightheadedness but hemodynamically stable Recheck H&H and trend. Transfuse for hemoglobin less than 7. Rule out colonic malignancy until proven otherwise Iron studies, vitamin B12, folate studies were reviewed Hypokalemia K 2.6 on admission. 3.6 this am Likely secondary to diuretics and diarrhea Received repletion Continue to replete as needed Hold diuretics Diarrhea Patient reports x20 episodes per day of diarrhea x4 days Could be secondary to intussusception, metformin use, senna use Stool PCR neg Type 2 diabetes Hold home metformin and glipizide BSG ACHS and SSI while inpatient Hypertension Continue hydralazine and metoprolol Home diuretics on hold due to hypokalemia and dehydration Dyslipidemia Continue rosuvastatin Cardiac pacemaker in situ Continue baby aspirin DANYEL CPAP HS DVT Prophylaxis: SCDs due to OR tomorrow Code Status: FULL CODE - As per discussion at bedside with the patient. PCP: Delores Gonzalez I spent a total of 55 minutes coordinating, documenting and providing care for this patient. Admission and Anticipated Discharge Date Admission Date: April 15, 2025 Subjective Chart, data and vital signs reviewed. Patient seen at bedside. Patient seen and examined. Still with some abdominal pain. Afebrile. Review of Systems Review of Systems: Constitutional- no fever; no chills Eyes- no acute visual changes ENT- no sinus drainage; no pharyngitis Pulmonary- no cough, no wheezing, no shortness of breath Cardiac- no chest pain, no palpitations, no orthopnea, no dependent edema GI- no nausea, no vomiting, pos. Increase activity Diarrhea, no melena, no hematochezia - no dysuria, no hematuria Musculoskeletal- no arthralgias, no myalgias Derm- no rashes, no new skin lesions, no changing skin lesions Hematologic- no unusual bruising, no unusual bleeding Lymphatics- no adenopathy Endocrine- no polyuria or polydipsia; no heat or cold intolerance Neuro- no headaches, no focal neurologic symptoms Psych- no anxiety, no depression Physical Exam Physical Exam: .General- adult elderly female seen at [facility] Head- atraumatic Eyes- PERRL, EOMI, anicteric ENT- oropharynx clear Neck- supple, no JVD, no adenopathy, no thyromegaly; carotids +2/2, no bruits appreciated Lungs- clear to auscultation and percussion Heart- regular rhythm; no murmur, no gallop, no rub appreciated Abdomen- normal bowel sounds, soft, diffuse tenderness, no rebound, no masses or hepatosplenomegaly Extremities- no pretibial edema, no calf tenderness; peripheral pulses intact Neuro- alert, oriented x 3; PERRL, EOMI; no facial palsy; no dysarthria; no focal deficits\ Skin- warm & dry Results & Data Results & Data Vital Signs (Past 12 Hours) Vital Signs Temp Pulse Pulse Resp BP Pulse Ox O2 Del Method 04/16/25 11:01 36.8 C 60 18 123/56 L 99 Room Air 04/16/25 08:02 Room Air, Nasal Cannula 04/16/25 07:56 36.6 C 78 126/69 93 Room Air 04/16/25 07:41 70 04/16/25 02:58 36.7 C 62 16 100/48 L 99 Nasal Cannula O2 Flow Rate 04/16/25 11:01 04/16/25 08:02 2 04/16/25 07:56 04/16/25 07:41 04/16/25 02:58 2 Diagnostic Findings Laboratory Results WBC 8.33 K/ul (4.8-10.8) 04/16/25 07:37 RBC 3.79 M/uL (4.20-5.40) L 04/16/25 07:37 Hgb 7.1 g/dl (12.0-16.0) L 04/16/25 07:37 Hct 25.0 % (37.0-47.0) L 04/16/25 07:37 MCV 66.0 fL (80.0-100.0) L 04/16/25 07:37 MCH 18.7 pg (25.0-34.0) L 04/16/25 07:37 MCHC 28.4 g/dL (32.0-36.0) L 04/16/25 07:37 RDW Std Deviation 45.6 fL (36.4-46.3) 04/16/25 07:37 RDW Coeff of Falguni 19.6 % (11.5-14.5) H 04/16/25 07:37 Plt Count 509 K/uL (130-400) H 04/16/25 07:37 MPV 8.3 fL (9.4-12.4) L 04/16/25 07:37 Immature Gran % (Auto) 0.5 % 04/15/25 12:20 Neut % (Auto) 74.0 % 04/15/25 12:20 Lymph % (Auto) 15.0 % 04/15/25 12:20 [place] % (Auto) 9.3 % 04/15/25 12:20 Eos % (Auto) 0.7 % 04/15/25 12:20 Baso % (Auto) 0.5 % 04/15/25 12:20 Neut # (Auto) 8.60 K/uL (1.40-6.50) H 04/15/25 12:20 Lymph # (Auto) 1.74 K/uL (1.20-3.40) 04/15/25 12:20 [place] # (Auto) 1.08 K/uL (0.11-0.59) H 04/15/25 12:20 Eos # (Auto) 0.08 K/uL (0.00-0.50) 04/15/25 12:20 Baso # (Auto) 0.06 K/uL (0.00-0.20) 04/15/25 12:20 Immature Gran # (Auto) 0.06 K/uL (0.01-0.20) 04/15/25 12:20 Microcytosis Present 04/15/25 12:20 Spherocytes 1+ 04/15/25 12:20 Ovalocytes 1+ 04/15/25 12:20 Sodium 138 mmol/L (136-145) 04/16/25 07:37 Potassium 3.6 mmol/L (3.5-5.1) D 04/16/25 07:37 Chloride 104 mmol/L (98-107) 04/16/25 07:37 Carbon Dioxide 26 mmol/L (21-32) 04/16/25 07:37 Anion Gap 8 (3-11) 04/16/25 07:37 BUN 9 mg/dl (6-23) 04/16/25 07:37 Creatinine 0.65 mg/dl (0.6-1.2) D 04/16/25 07:37 Est Cr Clr Drug Dosing 76.9 ml/min 04/16/25 07:37 eGFR 91.19 04/16/25 07:37 BUN/Creatinine Ratio 13.8 (10-20) 04/16/25 07:37 Glucose 90 mg/dl (70-99(Fasting)) 04/16/25 07:37 POC Glucose 107 mg/dl (70-99) H 04/16/25 07:58 Calcium 8.6 mg/dl (8.6-10.3) 04/16/25 07:37 Phosphorus 2.9 mg/dl (2.5-4.9) 04/16/25 07:37 Magnesium 1.7 mg/dl (1.7-2.4) 04/16/25 07:37 Iron 15 mcg/dl (35-150) L 04/16/25 07:37 TIBC 458 mcg/dl (250-450) H 04/16/25 07:37 Transferrin 327 mg/dl (200-360) 04/16/25 07:37 Transferrin % Sat 3 % (15-50) L 04/16/25 07:37 Total Bilirubin 0.5 mg/dl (0.2-1.0) 04/15/25 12:20 AST 12 U/L (13-39) L 04/15/25 12:20 ALT 9 U/L (7-52) 04/15/25 12:20 Alkaline Phosphatase 55 U/L (34-104) 04/15/25 12:20 Troponin I High Sens 10.1 pg/ml (0-14) 04/15/25 13:56 Total Protein 7.3 gm/dl (6.0-8.3) 04/15/25 12:20 Albumin 3.7 gm/dl (3.4-5.0) 04/15/25 12:20 Globulin 3.6 gm/dl (2.5-4.0) 04/15/25 12:20 Albumin/Globulin Ratio 1.0 (0.9-2) 04/15/25 12:20 Lipase 33 U/L (11-82) 04/15/25 12:20 Vitamin B12 87 pg/ml (180-914) L 04/16/25 07:37 Folate 14.68 ng/ml (>5.38) 04/16/25 07:37 Urine Color Yellow 04/15/25 13:03 Urine Appearance Clear (Clear) 04/15/25 13:03 Urine pH >= 9.0 (4.5-7.5) H 04/15/25 13:03 Ur Specific [place] 1.017 (1.000-1.030) 04/15/25 13:03 Urine Protein 2+ (Negative) H 04/15/25 13:03 Urine Glucose (UA) Negative (Negative) 04/15/25 13:03 Urine Ketones Trace (Negative) H 04/15/25 13:03 Urine Blood Negative (Negative) 04/15/25 13:03 Urine Nitrite Negative (Negative) 04/15/25 13:03 Urine Bilirubin Negative (Negative) 04/15/25 13:03 Urine Urobilinogen Positive (Negative) H 04/15/25 13:03 Ur Leukocyte Esterase 1+ (Negative) H 04/15/25 13:03 Urine WBC (Auto) 11-20 /hpf (0-5) H 04/15/25 13:03 Urine RBC (Auto) 0-2 /hpf (0-2) 04/15/25 13:03 U Hyaline Cast (Auto) 0-2 /lpf (0-2) 04/15/25 13:03 U Epithel Cells (Auto) 6-10 /hpf (0-2) H 04/15/25 13:03 Urine Bacteria (Auto) None Seen (None Seen) 04/15/25 13:03 Urine Comment 04/15/25 13:03 Stl C. cayetanensis PCR Not Detected (NotDetected) 04/16/25 01:07 Stool Rotavirus A PCR Not Detected (NotDetected) 04/16/25 01:07 Stl Adenov F 40/41 PCR Not Detected (NotDetected) 04/16/25 01:07 Stool Astrovirus (PCR) Not Detected (NotDetected) 04/16/25 01:07 Stool Campylobacter PCR Not Detected (NotDetected) 04/16/25 01:07 Stool Cryptosporidium PCR Not Detected (NotDetected) 04/16/25 01:07 Stl E.coli Shiga Tox PCR Not Detected (NotDetected) 04/16/25 01:07 Stl Enterotoxigenic E PCR Not Detected (NotDetected) 04/16/25 01:07 Stool EPEC (PCR) Not Detected (NotDetected) 04/16/25 01:07 Stool EAEC (PCR) Not Detected (NotDetected) 04/16/25 01:07 Stl E. histolytica PCR Not Detected (NotDetected) 04/16/25 01:07 Stool Giardia Lamblia PCR Not Detected (NotDetected) 04/16/25 01:07 Stool Salmonella PCR Not Detected (NotDetected) 04/16/25 01:07 Stool Sapovirus (PCR) Not Detected (NotDetected) 04/16/25 01:07 Stl P. shigelloides PCR Not Detected (NotDetected) 04/16/25 01:07 Stl Shigella/EIEC PCR Not Detected (NotDetected) 04/16/25 01:07 St Y.enterocolitica PCR Not Detected (NotDetected) 04/16/25 01:07 Stool Vibrio (PCR) Not Detected (NotDetected) 04/16/25 01:07 Stl Vibrio cholerae PCR Not Detected (NotDetected) 04/16/25 01:07 Stl Norovirus GI/GII PCR Not Detected (NotDetected) 04/16/25 01:07 Blood Type AB Positive 04/15/25 13:56 Blood Type Recheck AB Positive 04/15/25 21:37 Antibody Screen NEGATIVE 04/15/25 13:56 Crossmatch See Detail 04/15/25 13:56 Impressions Abdomen/Pelvis CT 04/15/25 12:[address] WITH IV CONTRAST CT DOSE: 1135.68 mGy.cm HISTORY: Acute lower abdominal pain with diarrhea lower abd pain TECHNIQUE: Multiaxial CT images of the abdomen and pelvis were performed following the IV administration of 93 cc of Optiray, A dose lowering technique was utilized adhering to the principles of ALARA. COMPARISON STUDY: None. FINDINGS: Cardiomegaly with partially imaged pacer leads. Clustered tree-in-bud nodules of the basal right lower lobe measure up to 4 mm. This is nonspecific, favored to be infectious or inflammatory. No pneumatosis or pneumoperitoneum. Unremarkable spleen, pancreas, adrenal glands and liver. Tiny gallstone. No CT evidence of acute cholecystitis. There is patency of the hepatic and portal veins. There are a few hypodense foci of the kidneys measuring up to 12 mm in the left which are nonspecific. These measure slightly above water attenuation. Decompressed bladder with wall thickening. Uterus is likely surgically absent. No abdominal aortic aneurysm. Nonspecific mildly enlarged right iliac chain lymph node measures 11 mm in image 251. Trace free pelvic fluid. Colonic diverticulosis without acute diverticulitis. The cecum is displaced within the left mid abdomen and there is an ileocecal intussusception. Wall thickening of the distal ileum and cecum is noted with adjacent interloop edema and increased enhancement of the bowel paul. Enlarged lymph nodes in the ileocolic mesentery measuring up to 1.9 x 1.4 cm. No bone lesions. Unremarkable soft tissues. : IMPRESSION: 1. The cecum is present within the left mid abdomen and there is an ileocolic intussusception. Associated wall thickening at the intussusception site is noted with mucosal hyperemia compatible with venous engorgement. Mucosal mass serving as a lead point is the diagnosis of exclusion, however is not definitively seen. Surgical consultation is needed. 2. No bowel obstruction, pneumatosis or pneumoperitoneum. 3. Pathologically enlarged ileocolic and right iliac chain lymph nodes. ACT 112: Positive. There are findings on this exam that require communication between the performing entity and the patient following Patient Test Result Information Act ([place] Act 112) guidelines. The above report was generated using voice recognition software. It may contain grammatical, syntax or spelling errors. Electronically signed by: Sam Merino M.D. 04/15/2025 1:43 PM Chest X-Ray 04/15/25 12:49 XR chest 1V portable CLINICAL HISTORY: chest pain COMPARISON STUDY: None FINDINGS: Left cardiac pacemaker is present. Heart size and pulmonary vasculature are normal. No consolidation or pleural effusion. No pneumothorax. IMPRESSION: No acute findings. ACT 112: Negative or not required by law. Electronically signed by: Shashank Vyas M.D. 04/15/2025 1:15 PM (2) Anemia Anemia type: unspecified type Qualified Code(s): D64.9 - Anemia, unspecified
--- NOTE | 2025-04-16 15:02 | Post Operative Brief Note ---
PG Immediate Post Op with CF Date of Surgery April 16, 2025 Pre & Post Diagnosis Operation Date: 04/16/25 07:00 Pre-Op Diagnosis: Ileocolonic intussusception Post-Op Diagnosis: Ileocolonic intussusception I identified the patient and participated in the time-out.: Yes Procedure Operation Date: 04/16/25 07:00 Actual Procedures p Exploratory Laparotomy(Not Applicable) - Prashanht Zapata DO s Right Hemicolectomy (Right) - Prashanth Zapata DO Surgeon Prahsanth Zapata DO Oriental Medicine Practitioner Guadalupe Stock PA-C Estimated Blood Loss 20 Findings See Below Ileocolonic intussusception with healthy-appearing ileum right colon and transverse colon Liver without any palpable masses Specimens Specimen Description: A: Right Colon and Ileum B: Portion of Ileocolonic Anastomosis Drains Feliciano Catheter (16 fr inserted without difficulty by Reanna Devine RN, draining clear yellow urine. Anesthesia monitoring urine output) Anesthesia Type General Complications none Disposition Disposition: Recovery Room
--- NOTE | 2025-04-16 15:08 | Operative Report ---
PG Post Operative Report Pre & Post Diagnosis Operation Date: 04/16/25 07:00 Pre-Op Diagnosis: Ileocolonic intussusception Post-Op Diagnosis: Ileocolonic intussusception I identified the patient and participated in the time-out.: Yes Procedure Operation Date: 04/16/25 07:00 Actual Procedures p Exploratory Laparotomy(Not Applicable) - Prashanth Zapata DO s Right Hemicolectomy (Right) - Prashanth Zapata DO Surgeon Prashanth Zapata DO Acid Tester Guadalupe Stock PA-C Estimated Blood Loss 20 Findings See Below Ileocolonic intussusception with healthy-appearing ileum right colon and transverse colon Liver without any palpable masses Specimens Portion of ileum and right/transverse colon to pathology Drains None Anesthesia Type General Complications none Disposition Disposition: Recovery Room Indications 75-year-old female with CT findings of ileocolonic intussusception as well as profound chronic anemia Description of Procedure The patient was brought to the OR and placed in the supine position with both arms abducted. At this time she underwent general endotracheal anesthesia without any problems. She was given appropriate pre-operative antibiotics. Her abdomen was prepped and draped in the usual sterile fashion. Timeout was called. The procedure was verified as Exploratory laparotomy, right he micolectomy.. Surgical, anesthesia and nursing teams agreed and the procedure was begun. A standard midline incision was made using a #10 blade scalpel. This was carried down to the fascia using electrocautery. The midline fascia was then incised with electrocautery. The peritoneum was then entered bluntly. The incision was then opened up through its entirety. At this point patient was put headdown and rotated to the left. I was easily able to find the ileocecum region that you could clearly see an intussusception that was seen on CT scan. This was palpated and went to about the proximal to the mid transverse colon. There were no signs of ischemia or perforation. At this time we proceeded with a right hemicolectomy. We did free up the right colon laterally along the white line of [place] using electrocautery. As we came around the hepatic flexure the duodenum was visualized and swept posteriorly. We then transected the transverse colon to the left of the right branch of the middle colic vessel with a blue load SAROJ 80 mm staple load. We then found a portion of the ileum that would lay without tension up to this point in the transverse colon. This was then taken with another blue load SAROJ 80 mm staple load. We then took the mesentery with the LigaSure device. The specimen was passed off. We then fashioned and [id number] functional end and anastomosis using a blue load SAROJ 80 mm staple load to anastomose the ileum to the transverse colon. The common anatomy was then closed with another SAROJ 80 mm staple load. This point a 3-0 silk crotch stitch was placed. The mesenteric defect was then closed with a running 3-0 Vicryl. The liver itself was palpated and no masses were found. At this point the wound was then irrigated until clear. Hemostasis was achieved using electrocautery. Hemostasis was complete. The fascia was then closed in a running fashion using 2 #1 looped PDS suture starting superiorly and inferiorly and meeting in the middle. Skin was closed with izabel. Sterile dressing was applied. All needle and sponge counts were correct x 2. At this point the patient was awakened from anesthesia, and transported to PACU in stable condit ion. The physician's language assistant was present and scrubbed for the entirety of the case. She was critical in positioning the patient, prepping and draping, retraction and exposure, closure of the incision and placement of the dressings. I attest to the content of the Intraoperative Record and any orders documented therein. Any exceptions are noted below.
--- NOTE | 2025-04-16 16:14 | Anesthesiology Progress Note ---
Date of Service April 16, 2025 Anesthesia Post Procedure Vital Signs Vital Signs: Temp Pulse Pulse Pulse Resp BP BP 04/16/25 15:50 62 18 120/52 L 04/16/25 15:40 62 17 120/51 L 04/16/25 15:30 73 25 H 136/59 L 04/16/25 15:20 73 25 H 143/55 H 04/16/25 15:12 36.4 C L 68 20 136/56 L 04/16/25 11:01 36.8 C 60 18 123/56 L 04/16/25 08:02 04/16/25 07:56 36.6 C 78 126/69 04/16/25 07:41 70 04/16/25 02:58 36.7 C 62 16 100/48 L 04/16/25 00:40 84 04/15/25 23:30 36.7 C 65 14 97/61 L 04/15/25 18:34 83 04/15/25 18:28 36.7 C 84 145/73 H 04/15/25 17:53 72 16 Pulse Ox O2 Del Method O2 Flow Rate 04/16/25 15:50 98 Oxymask 2 04/16/25 15:40 100 Oxymask 4 04/16/25 15:30 99 Oxymask 6 04/16/25 15:20 95 Oxymask 8 04/16/25 15:12 100 Oxymask 8 04/16/25 11:01 99 Room Air 04/16/25 08:02 Room Air, Nasal Cannula 2 04/16/25 07:56 93 Room Air 04/16/25 07:41 04/16/25 02:58 99 Nasal Cannula 2 04/16/25 00:40 04/15/25 23:30 93 Room Air 04/15/25 18:34 04/15/25 18:28 97 Room Air 04/15/25 17:53 95 Room Air Pain Intensity Lower Anterior Abdomen: Pain Intensity: 2 Abdomen: Pain Intensity: 10 Transfer of Care Handoff Completed per policy Notes Mental Status: alert / awake / arousable Patient Amnestic to Procedure: Yes Nausea / Vomiting: adequately controlled Pain: adequately controlled Airway Patency, RR, SpO2: stable & adequate BP & HR: stable & adequate Hydration State: stable & adequate Anesthetic Complications: no major complications apparent and Pt Satisfied with anesthetic care
[2025-04-16] MEDS: MoRPHine SULFATE 4 MG/ML 1 ML CARP\\VIAL IV PRN (17:00)
[2025-04-16] MEDS: BUPIVACAINE/EPINEPHRINE 0.25% 1:200,000 30 ML VIAL ONE (17:05)
[2025-04-16] MEDS: cefOXitin 2,000 MG in DEXTROSE 5 % MINI-B 50 ML IV SCH (20:25)
[2025-04-17 07:53] LABS: Hematocrit (blood only) 27.3 % (37.0-47.0); Hemoglobin 7.8 g/dl (12.0-16.0); Mean Corpuscular Hemoglobin 19.9 pg (25.0-34.0); Mean Corpuscular Volume 69.6 fL (80.0-100.0); Platelet Count 511 K/uL (130-400); RDW Standard Deviation 52.9 fL (36.4-46.3); Red Blood Count 3.92 M/uL (4.20-5.40); White Blood Count 15.45 K/ul (4.8-10.8)
[2025-04-17 07:56] LABS: Anion Gap 7.0 (3-11); Blood Urea Nitrogen 9.0 mg/dl (6-23); Calcium 8.4 mg/dl (8.6-10.3); Carbon Dioxide 25.0 mmol/L (21-32); Chloride 105.0 mmol/L (98-107); Creatinine Clr Calc Pharmacy 67.7 ml/min; Glucose 138.0 mg/dl (70-99(Fasting)); Magnesium 1.7 mg/dl (1.7-2.4); Potassium 4.9 mmol/L (3.5-5.1); Sodium 137.0 mmol/L (136-145)
[2025-04-17 08:06] LABS: Anisocytosis Present; Immature Granulocytes # (auto) 0.07 K/uL (0.01-0.20); Immature Granulocytes % (auto) 0.5 %; Microcytosis Present; Ovalocytes 1+; Polychromasia 1+
--- NOTE | 2025-04-17 08:53 | Surgery Progress Note ---
Date of Service April 17, 2025 Assessment & Plan (1) Intussusception: Plan: Patient is POD #1 s/p Exploratory Laparotomy with Right Hemicolectomy for Ileocolonic intussusception by Dr. Zapata -Tolerating clears however not passing gas and no BM, will keep on clears for now and monitor for return of bowel function -WBC elevated today at 15, however patient has been afebrile. Could be reactive due to recent surgery. Will continue to monitor for signs of infection and continue to monitor WBC -Continue pain regime -Keep surgical dressing in place, will change tomorrow -Discussed with patient we would like her to be OOB. She does seem somewhat nervous/discourage about this. Will order an abdominal binder and will also place an order for PT as well. -Feliciano can be d/c from a surgery perspective -Continue medical management per primary team, surgery to follow. Admission and Anticipated Discharge Date Admission Date: April 15, 2025 Supervising Physician Co-Signing Physician Notes Postoperative day 1 exploratory laparotomy and right hemicolectomy for ileocolonic intussusception She is doing well and tolerating some clear liquids, no return of bowel function yet Remove Feliciano Start Lovenox for DVT prophylaxis Encourage ambulation and incentive spirometry Will await more meaningful return of bowel function Will follow-up on her pathology when available Her dressing can stay in place until Sunday and then this can be removed and left open to air Abdominal binder can be used if this helps her Subjective Patient seen and evaluated, she states she is feeling somewhat discourage this morning Is having some anticipated post-operative pain, however well controlled at this time. Tolerating clear liquids this morning without any complaints of N/V. However not passing gas as of yet VSS, afebrile, WBC elevated today at 15 however could be secondary to recent surgery Physical Exam Constitutional: WD/WN, vitals as above Respiratory: normal respiratory effort, lungs clear to auscultation Cardiovascular: Rate/Rhythm: regular rate Gastrointestinal (Abdomen): Abdomen soft, nondistended, +appropriate TTP over midline, surgical dressing in place without any strikethrough Skin: no rashes, warm and dry Psychiatric: A+Ox3, euthymic affect Results & Data Vital Signs (Past 12 Hours) Vital Signs Temp Pulse Pulse Resp BP BP Pulse Ox 04/17/25 07:39 36.9 C 72 18 139/69 96 04/17/25 05:38 58 L 04/17/25 02:07 36.7 C 72 18 145/72 H 97 04/16/25 22:25 36.3 C L 70 18 116/69 94 04/16/25 21:40 62 04/16/25 21:31 71 135/72 92 O2 Del Method O2 Flow Rate 04/17/25 07:39 Nasal Cannula 2 04/17/25 05:38 04/17/25 02:07 CPAP 04/16/25 22:25 Room Air, BiPAP 04/16/25 21:40 04/16/25 21:31 CPAP PG Care Time/CCT Total # of Minutes Spent Total Time Spent with Patient: Total time spent is greater than 50% in coordination of care (as documented) at patient's floor/unit and/or counseling patient: C[place] [address] Post Operative Follow-Up Patient Type Established Medical Decision Making Straight Forward Diagnoses Intussusception K56.1
[2025-04-17] MEDS: MoRPHine SULFATE 2 MG/ML CARP IV PRN (11:22)
[2025-04-17] MEDS: ENOXAPARIN INJ 40 MG/0.4 ML SYR SQ SCH (11:51)
--- NOTE | 2025-04-17 14:59 | Hospitalist Progress Note ---
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 Intussusception Patient presented with abdominal pain x4 days with associated diarrhea CT abdomen revealed ileocolic intussusception with associated wall thickening consistent with venous engorgement and concerning for mucosal mass Surgery consulted. Stable post op stable Day #1 exploratory laparotomy and right hemicolectomy for ileocolonic intussusception Pain control with IV tylenol and morphine PRN clear liquids for now per surgery Anemia Hgb 7.1-->7.8 this am Patient has iron deficiency, will need supplementation. Recheck H&H and trend. Transfuse for hemoglobin less than 7. No signs of colonic malignancy during surgical procedure Iron studies, vitamin B12, folate studies were reviewed Hypokalemia K 2.6 -->3.6--> 4.9 this am Received repletion Continue to replete as needed Restart diuretics Diarrhea Patient reports x20 episodes per day of diarrhea x4 days Could be secondary to intussusception, metformin use, senna use Stool PCR neg Type 2 diabetes Hold home metformin and glipizide BSG ACHS and SSI while inpatient Hypertension Continue hydralazine and metoprolol Restart diuretics on hold due to hypokalemia and dehydration Dyslipidemia Continue rosuvastatin Cardiac pacemaker in situ Continue baby aspirin DANYEL CPAP HS DVT Prophylaxis: SCDs due to OR tomorrow I spent a total of 50 minutes coordinating, documenting and providing care for this patient. Admission and Anticipated Discharge Date Admission Date: April 15, 2025 Subjective Chart, data and vital signs reviewed. Her vital signs are stable. Patient seen and evaluated at bedside. Her son is present. Tolerating clear liquids this morning without any complaints of N/V. However not passing gas as of yet. She is POD #1 exploratory laparotomy and right hemicolectomy for ileocolonic intussusception Review of Systems Review of Systems: Constitutional- no fever; no chills Eyes- no acute visual changes ENT- no sinus drainage; no pharyngitis Pulmonary- no cough, no wheezing, no shortness of breath Cardiac- no chest pain, no palpitations, no orthopnea, no dependent edema GI- no nausea, no vomiting, she does have some incisional pain but well- controlled on current regimen - no dysuria, no hematuria Neuro- no headaches, no focal neurologic symptoms Psych- no anxiety, no depression Physical Exam Physical Exam: General- adult elderly female seen at bedside Head- atraumatic Eyes- PERRL, EOMI, anicteric ENT- oropharynx clear Neck- supple, no JVD, no adenopathy, no thyromegaly; carotids +2/2, no bruits appreciated Lungs- clear to auscultation and percussion Heart- regular rhythm; no murmur, no gallop, no rub appreciated Abdomen-dressing intact, no seepage Extremities- no pretibial edema, no calf tenderness; peripheral pulses intact Neuro- alert, oriented x 3; PERRL, EOMI; no focal deficits Skin- warm & dry Results & Data Results & Data Vital Signs (Past 12 Hours) Vital Signs Temp Pulse Pulse Resp BP BP Pulse Ox 04/17/25 11:36 36.6 C 67 18 115/54 L 93 04/17/25 07:39 36.9 C 72 18 139/69 96 04/17/25 07:32 04/17/25 05:38 58 L O2 Del Method O2 Flow Rate 04/17/25 11:36 Room Air 04/17/25 07:39 Nasal Cannula 2 04/17/25 07:32 Room Air 04/17/25 05:38 Laboratory Results Short CBC 04/17/25 Range/Units 07:04 WBC 15.45 H (4.8-10.8) K/ul Hgb 7.8 L (12.0-16.0) g/dl Hct 27.3 L (37.0-47.0) % Plt Count 511 H (130-400) K/uL BMP 04/17/25 07:04 Sodium 137 Potassium 4.9 D Chloride 105 Carbon Dioxide 25 BUN 9 Creatinine 0.77 Glucose 138 H Calcium 8.4 L Diagnostic Findings Laboratory Results WBC 15.45 K/ul (4.8-10.8) H 04/17/25 07:04 RBC 3.92 M/uL (4.20-5.40) L 04/17/25 07:04 Hgb 7.8 g/dl (12.0-16.0) L 04/17/25 07:04 Hct 27.3 % (37.0-47.0) L 04/17/25 07:04 MCV 69.6 fL (80.0-100.0) L D 04/17/25 07:04 MCH 19.9 pg (25.0-34.0) L 04/17/25 07:04 MCHC 28.6 g/dL (32.0-36.0) L 04/17/25 07:04 RDW Std Deviation 52.9 fL (36.4-46.3) H 04/17/25 07:04 RDW Coeff of Falguni 21.2 % (11.5-14.5) H 04/17/25 07:04 Plt Count 511 K/uL (130-400) H 04/17/25 07:04 MPV 8.4 fL (9.4-12.4) L 04/17/25 07:04 Immature Gran % (Auto) 0.5 % 04/17/25 07:04 Neut % (Auto) 87.4 % 04/17/25 07:04 Lymph % (Auto) 4.9 % 04/17/25 07:04 [place] % (Auto) 7.1 % 04/17/25 07:04 Eos % (Auto) 0.0 % 04/17/25 07:04 Baso % (Auto) 0.1 % 04/17/25 07:04 Neut # (Auto) 13.51 K/uL (1.40-6.50) H 04/17/25 07:04 Lymph # (Auto) 0.76 K/uL (1.20-3.40) L 04/17/25 07:04 [place] # (Auto) 1.10 K/uL (0.11-0.59) H 04/17/25 07:04 Eos # (Auto) 0.00 K/uL (0.00-0.50) 04/17/25 07:04 Baso # (Auto) 0.01 K/uL (0.00-0.20) 04/17/25 07:04 Immature Gran # (Auto) 0.07 K/uL (0.01-0.20) 04/17/25 07:04 Polychromasia 1+ 04/17/25 07:04 Anisocytosis Present 04/17/25 07:04 Microcytosis Present 04/17/25 07:04 Spherocytes 1+ 04/15/25 12:20 Ovalocytes 1+ 04/17/25 07:04 Sodium 137 mmol/L (136-145) 04/17/25 07:04 Potassium 4.9 mmol/L (3.5-5.1) D 04/17/25 07:04 Chloride 105 mmol/L (98-107) 04/17/25 07:04 Carbon Dioxide 25 mmol/L (21-32) 04/17/25 07:04 Anion Gap 7 (3-11) 04/17/25 07:04 BUN 9 mg/dl (6-23) 04/17/25 07:04 Creatinine 0.77 mg/dl (0.6-1.2) 04/17/25 07:04 Est Cr Clr Drug Dosing 67.7 ml/min 04/17/25 07:04 eGFR 79.90 04/17/25 07:04 BUN/Creatinine Ratio 11.7 (10-20) 04/17/25 07:04 Glucose 138 mg/dl (70-99(Fasting)) H 04/17/25 07:04 POC Glucose 151 mg/dl (70-99) H 04/17/25 11:43 Calcium 8.4 mg/dl (8.6-10.3) L 04/17/25 07:04 Phosphorus 2.9 mg/dl (2.5-4.9) 04/16/25 07:37 Magnesium 1.7 mg/dl (1.7-2.4) 04/17/25 07:04 Iron 15 mcg/dl (35-150) L 04/16/25 07:37 TIBC 458 mcg/dl (250-450) H 04/16/25 07:37 Transferrin 327 mg/dl (200-360) 04/16/25 07:37 Transferrin % Sat 3 % (15-50) L 04/16/25 07:37 Total Bilirubin 0.5 mg/dl (0.2-1.0) 04/15/25 12:20 AST 12 U/L (13-39) L 04/15/25 12:20 ALT 9 U/L (7-52) 04/15/25 12:20 Alkaline Phosphatase 55 U/L (34-104) 04/15/25 12:20 Troponin I High Sens 10.1 pg/ml (0-14) 04/15/25 13:56 Total Protein 7.3 gm/dl (6.0-8.3) 04/15/25 12:20 Albumin 3.7 gm/dl (3.4-5.0) 04/15/25 12:20 Globulin 3.6 gm/dl (2.5-4.0) 04/15/25 12:20 Albumin/Globulin Ratio 1.0 (0.9-2) 04/15/25 12:20 Lipase 33 U/L (11-82) 04/15/25 12:20 Vitamin B12 87 pg/ml (180-914) L 04/16/25 07:37 Folate 14.68 ng/ml (>5.38) 04/16/25 07:37 Urine Color Yellow 04/15/25 13:03 Urine Appearance Clear (Clear) 04/15/25 13:03 Urine pH >= 9.0 (4.5-7.5) H 04/15/25 13:03 Ur Specific [place] 1.017 (1.000-1.030) 04/15/25 13:03 Urine Protein 2+ (Negative) H 04/15/25 13:03 Urine Glucose (UA) Negative (Negative) 04/15/25 13:03 Urine Ketones Trace (Negative) H 04/15/25 13:03 Urine Blood Negative (Negative) 04/15/25 13:03 Urine Nitrite Negative (Negative) 04/15/25 13:03 Urine Bilirubin Negative (Negative) 04/15/25 13:03 Urine Urobilinogen Positive (Negative) H 04/15/25 13:03 Ur Leukocyte Esterase 1+ (Negative) H 04/15/25 13:03 Urine WBC (Auto) 11-20 /hpf (0-5) H 04/15/25 13:03 Urine RBC (Auto) 0-2 /hpf (0-2) 04/15/25 13:03 U Hyaline Cast (Auto) 0-2 /lpf (0-2) 04/15/25 13:03 U Epithel Cells (Auto) 6-10 /hpf (0-2) H 04/15/25 13:03 Urine Bacteria (Auto) None Seen (None Seen) 04/15/25 13:03 Urine Comment 04/15/25 13:03 Stl C. cayetanensis PCR Not Detected (NotDetected) 04/16/25 01:07 Stool Rotavirus A PCR Not Detected (NotDetected) 04/16/25 01:07 Stl Adenov F 40/41 PCR Not Detected (NotDetected) 04/16/25 01:07 Stool Astrovirus (PCR) Not Detected (NotDetected) 04/16/25 01:07 Stool Campylobacter PCR Not Detected (NotDetected) 04/16/25 01:07 Stool Cryptosporidium PCR Not Detected (NotDetected) 04/16/25 01:07 Stl E.coli Shiga Tox PCR Not Detected (NotDetected) 04/16/25 01:07 Stl Enterotoxigenic E PCR Not Detected (NotDetected) 04/16/25 01:07 Stool EPEC (PCR) Not Detected (NotDetected) 04/16/25 01:07 Stool EAEC (PCR) Not Detected (NotDetected) 04/16/25 01:07 Stl E. histolytica PCR Not Detected (NotDetected) 04/16/25 01:07 Stool Giardia Lamblia PCR Not Detected (NotDetected) 04/16/25 01:07 Stool Salmonella PCR Not Detected (NotDetected) 04/16/25 01:07 Stool Sapovirus (PCR) Not Detected (NotDetected) 04/16/25 01:07 Stl P. shigelloides PCR Not Detected (NotDetected) 04/16/25 01:07 Stl Shigella/EIEC PCR Not Detected (NotDetected) 04/16/25 01:07 St Y.enterocolitica PCR Not Detected (NotDetected) 04/16/25 01:07 Stool Vibrio (PCR) Not Detected (NotDetected) 04/16/25 01:07 Stl Vibrio cholerae PCR Not Detected (NotDetected) 04/16/25 01:07 Stl Norovirus GI/GII PCR Not Detected (NotDetected) 04/16/25 01:07 Blood Type AB Positive 04/15/25 13:56 Blood Type Recheck AB Positive 04/15/25 21:37 Antibody Screen NEGATIVE 04/15/25 13:56 Crossmatch See Detail 04/15/25 13:56 Impressions Abdomen/Pelvis CT 04/15/25 12:[address] WITH IV CONTRAST CT DOSE: 1135.68 mGy.cm HISTORY: Acute lower abdominal pain with diarrhea lower abd pain TECHNIQUE: Multiaxial CT images of the abdomen and pelvis were performed following the IV administration of 93 cc of Optiray, A dose lowering technique was utilized adhering to the principles of ALARA. COMPARISON STUDY: None. FINDINGS: Cardiomegaly with partially imaged pacer leads. Clustered tree-in-bud nodules of the basal right lower lobe measure up to 4 mm. This is nonspecific, favored to be infectious or inflammatory. No pneumatosis or pneumoperitoneum. Unremarkable spleen, pancreas, adrenal glands and liver. Tiny gallstone. No CT evidence of acute cholecystitis. There is patency of the hepatic and portal veins. There are a few hypodense foci of the kidneys measuring up to 12 mm in the left which are nonspecific. These measure slightly above water attenuation. Decompressed bladder with wall thickening. Uterus is likely surgically absent. No abdominal aortic aneurysm. Nonspecific mildly enlarged right iliac chain lymph node measures 11 mm in image 251. Trace free pelvic fluid. Colonic diverticulosis without acute diverticulitis. The cecum is displaced within the left mid abdomen and there is an ileocecal intussusception. Wall thickening of the distal ileum and cecum is noted with adjacent interloop edema and increased enhancement of the bowel paul. Enlarged lymph nodes in the ileocolic mesentery measuring up to 1.9 x 1.4 cm. No bone lesions. Unremarkable soft tissues. : IMPRESSION: 1. The cecum is present within the left mid abdomen and there is an ileocolic intussusception. Associated wall thickening at the intussusception site is noted with mucosal hyperemia compatible with venous engorgement. Mucosal mass serving as a lead point is the diagnosis of exclusion, however is not definitively seen. Surgical consultation is needed. 2. No bowel obstruction, pneumatosis or pneumoperitoneum. 3. Pathologically enlarged ileocolic and right iliac chain lymph nodes. ACT 112: Positive. There are findings on this exam that require communication between the performing entity and the patient following Patient Test Result Information Act ([place] Act 112) guidelines. The above report was generated using voice recognition software. It may contain grammatical, syntax or spelling errors. Electronically signed by: Sam Merino M.D. 04/15/2025 1:43 PM Chest X-Ray 04/15/25 12:49 XR chest 1V portable CLINICAL HISTORY: chest pain COMPARISON STUDY: None FINDINGS: Left cardiac pacemaker is present. Heart size and pulmonary vasculature are normal. No consolidation or pleural effusion. No pneumothorax. IMPRESSION: No acute findings. ACT 112: Negative or not required by law. Electronically signed by: Shashank Vyas M.D. 04/15/2025 1:15 PM Decreased breath (2) Anemia Anemia type: unspecified type Qualified Code(s): D64.9 - Anemia, unspecified
[2025-04-17] MEDS: IRON SUCROSE 200 MG in SODIUM CHLORIDE 0.9% 100 ML IV ONE (15:32)
[2025-04-17] MEDS: ONDANSETRON INJ 2 MG/ML 2 ML VIAL IV PRN (19:32)
[2025-04-17] MEDS: SODIUM CHLORIDE 0.9% 1,000 ML IV SCH (20:20)
[2025-04-17] MEDS: ERTAPENEM 1000MG 1,000 MG/10 ML SYR IV SCH (20:22)
[2025-04-17 22:39] LABS: Appearance Urine Clear (Clear); Bacteria Urine Automated None Seen (None Seen); Glucose Urine UA Negative (Negative); RBC Urine Automated 0-2 /hpf (0-2); WBC Urine Automated 21-50 /hpf (0-5)
--- NOTE | 2025-04-18 04:53 | Surgery Progress Note ---
Date of Service April 18, 2025 Assessment & Plan (1) Intussusception: Plan: Patient is status post right hemicolectomy on 04/16/2025 (postop day #2 Would maintain patient on clear liquids until she has more meaningful return of bowel function Continue analgesics as needed Continue antiemetics if needed Encourage ambulation Check a.m. labs when available Lovenox is in place for DVT prevention As above. Doing well/as expected. Awaiting return of bowel function. Admission and Anticipated Discharge Date Admission Date: April 15, 2025 Subjective Patient is resting comfortably in bed. She denies any nausea or vomiting but has not passed flatus since surgery. She also has not had a bowel movement. She is urinating without difficulty. She says that she was able to ambulate short distances in the hallway yesterday Physical Exam Gastrointestinal (Abdomen): Abdomen noted to have slight distention. Patient has dressing in place which is clean, dry, intact. Patient has tenderness over surgical incision. Results & Data Vital Signs (Past 12 Hours) Vital Signs Temp Pulse Pulse Resp BP Pulse Ox O2 Del Method 04/18/25 04:48 85 04/18/25 03:52 36.6 C 76 18 121/73 94 Nasal Cannula 04/18/25 00:12 36.7 C 77 20 134/81 94 Room Air 04/17/25 21:24 84 117/70 93 Nasal Cannula 04/17/25 20:00 37.1 C 93 H 16 121/73 92 Nasal Cannula 04/17/25 19:37 Nasal Cannula 04/17/25 19:22 90 Nasal Cannula 04/17/25 19:20 38.0 C H 97 H 18 131/74 85 L Room Air O2 Flow Rate 04/18/25 04:48 04/18/25 03:52 2 04/18/25 00:12 2 04/17/25 21:24 2 04/17/25 20:00 2 04/17/25 19:37 2 04/17/25 19:22 2 04/17/25 19:20 PG Care Time/CCT Total # of Minutes Spent Total Time Spent with Patient: Total time spent is greater than 50% in coordination of care (as documented) at patient's floor/unit and/or counseling patient: Coding Level of Care Code None Diagnoses Intussusception K56.1
--- NOTE | 2025-04-18 06:10 | Electrocardiogram Report ---
Test Reason : Blood Pressure : */* mmHG Vent. Rate : 73 BPM Atrial Rate : 73 BPM P-R Int : 216 ms QRS Dur : 156 ms QT Int : 458 ms P-R-T Axes : 18 -51 64 degrees QTcB Int : 504 ms Atrial-sensed ventricular-paced rhythm with prolonged AV conduction Abnormal ECG No previous ECGs available Confirmed by Ray Montejo ([id number]) on 04/18/2025 6:09:48 AM Referred By: Confirmed By: Ray Montejo
[2025-04-18 06:26] LABS: Hematocrit (blood only) 26.0 % (37.0-47.0); Hemoglobin 7.5 g/dl (12.0-16.0); Immature Granulocytes # (auto) 0.09 K/uL (0.01-0.20); Immature Granulocytes % (auto) 0.7 %; Mean Corpuscular Hemoglobin 20.0 pg (25.0-34.0); Mean Corpuscular Volume 69.3 fL (80.0-100.0); RDW Standard Deviation 53.2 fL (36.4-46.3); Red Blood Count 3.75 M/uL (4.20-5.40); White Blood Count 13.61 K/ul (4.8-10.8)
[2025-04-18 06:49] LABS: Anion Gap 6.0 (3-11); Blood Urea Nitrogen 8.0 mg/dl (6-23); Calcium 8.2 mg/dl (8.6-10.3); Carbon Dioxide 24.0 mmol/L (21-32); Chloride 106.0 mmol/L (98-107); Creatinine Clr Calc Pharmacy 65.5 ml/min; Glucose 135.0 mg/dl (70-99(Fasting)); Magnesium 1.7 mg/dl (1.7-2.4); Potassium 4.4 mmol/L (3.5-5.1); Sodium 136.0 mmol/L (136-145)
[2025-04-18 06:55] LABS: Platelet Count 486 K/uL (130-400)
[2025-04-18 06:57] LABS: Anisocytosis Present; Hypochromasia Present; Microcytosis Present; Ovalocytes 1+; Polychromasia 1+
--- NOTE | 2025-04-18 08:25 | XRay Report ---
EXAM: XR chest 1V portable CLINICAL HISTORY: fever TECHNIQUE: Radiograph of chest was acquired. COMPARISON: FINDINGS: Suboptimal radiograph due to incomplete inspiration. Cardiac pacemaker insitu Obliteration of left CP angle due to incomplete inspiration and obscured by cardiac silhoutte Still seen thickening of right paratracheal stripe The lungs are clear Rest of the cardiomediastinal silhouette is within normal limits. No acute osseous abnormality. IMPRESSION: 1. Suboptimal radiograph due to incomplete inspiration. 2. Still seen thickening of right paratracheal stripe 3. Bulky right hilum is detected. Possibility of pulmonary arterial hypertension. Suggested echocardiographic correlation.unchanged Electronically signed by Connor Collier 04-18-2025 08:25 AM
[2025-04-18] MEDS: CYANOCOBALAMIN (B-12) 500 MCG TABLET PO SCH (08:51)
--- NOTE | 2025-04-18 11:14 | Hospitalist Progress Note ---
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 Intussusception Patient presented with abdominal pain x4 days with associated diarrhea CT abdomen revealed ileocolic intussusception with associated wall thickening consistent with venous engorgement and concerning for mucosal mass Surgery consulted. Stable post op stable Day #2 exploratory laparotomy and right hemicolectomy for ileocolonic intussusception Pain control with IV tylenol and morphine PRN clear liquids for now per surgery Patient spiked low-grade temp last evening and had some confusion. Chest x-ray without infiltrate. Fever could be related to postsurgery atelectasis. Will continue incentive spirometry and add flutter therapy. Continue Invanz now until cultures return return Anemia Hgb 7.1-->7.8 this am Patient has iron deficiency, will need supplementation. Recheck H&H and trend. Transfuse for hemoglobin less than 7. No signs of colonic malignancy during surgical procedure Iron studies, vitamin B12, folate studies were reviewed Hypokalemia K 2.6 -->3.6--> 4.9-->4.4 this am Received repletion Continue to replete as needed Restart diuretics Diarrhea Patient reports x20 episodes per day of diarrhea x4 days Could be secondary to intussusception, metformin use, senna use Stool PCR neg Type 2 diabetes Hold home metformin and glipizide BSG ACHS and SSI while inpatient Hypertension Continue hydralazine and metoprolol Restart diuretics when able. on hold due to hypokalemia and dehydration Dyslipidemia Continue rosuvastatin Cardiac pacemaker in situ Continue baby aspirin DANYEL CPAP HS Possible pulmonary hypertension Check echo DVT Prophylaxis: SCDs due to OR tomorrow I spent a total of 52 coordinating, documenting and providing care for this patient. Admission and Anticipated Discharge Date Admission Date: April 15, 2025 Subjective Chart, data and vital signs reviewed. Patient seen at bedside. Patient had a temperature spike and some confusion last evening. Patient was placed on Invanz. WBC trending down. Chest x-ray shows no infiltrate but there is mention of concern for pulmonary hypertension. Echo recommended. Urine and blood cultures are pending. She denies any nausea or vomiting but has not passed flatus since surgery. She also has not had a bowel movement. She denies dysuria or hematuria. She was able to ambulate short distances in the hallway yesterday. No chest pain, palpitations or shortness of breath. Physical Exam Physical Exam: General- adult elderly female seen at bedside Head- atraumatic Eyes- PERRL, EOMI ENT- oropharynx clear Neck- supple, no JVD, no adenopathy, no thyromegaly; carotids +2/2, no bruits appreciated Lungs- clear to auscultation and percussion Heart- regular rhythm; no murmur, no gallop, no rub appreciated Abdomen-dressing intact, no seepage. Has incisional tenderness Extremities- no pretibial edema, no calf tenderness; Neuro- alert, oriented x 3; PERRL, EOMI; no focal deficits Skin- warm & dry Results & Data Results & Data Vital Signs (Past 12 Hours) Vital Signs Temp Pulse Pulse Resp BP Pulse Ox O2 Del Method 04/18/25 09:00 Nasal Cannula 04/18/25 07:36 36.9 C 78 18 116/72 96 Nasal Cannula 04/18/25 05:37 81 04/18/25 03:52 36.6 C 76 18 121/73 94 Nasal Cannula 04/18/25 00:12 36.7 C 77 20 134/81 94 Room Air O2 Flow Rate 04/18/25 09:00 2 04/18/25 07:36 2 04/18/25 05:37 04/18/25 03:52 2 04/18/25 00:12 2 Laboratory Results Short CBC 04/18/25 Range/Units 05:38 WBC 13.61 H (4.8-10.8) K/ul Hgb 7.5 L (12.0-16.0) g/dl Hct 26.0 L (37.0-47.0) % Plt Count 486 H (130-400) K/uL BMP 04/18/25 05:38 Sodium 136 Potassium 4.4 Chloride 106 Carbon Dioxide 24 BUN 8 Creatinine 0.81 Glucose 135 H Calcium 8.2 L Urine 04/17/25 Range/Units 21:54 Urine Color Dark Yellow Urine Appearance Clear (Clear) Urine pH 5.5 (4.5-7.5) Ur Specific Chama 1.039 H (1.000-1.030) Urine Protein 2+ H (Negative) Urine Glucose (UA) Negative (Negative) Diagnostic Findings Laboratory Results WBC 13.61 K/ul (4.8-10.8) H 04/18/25 05:38 RBC 3.75 M/uL (4.20-5.40) L 04/18/25 05:38 Hgb 7.5 g/dl (12.0-16.0) L 04/18/25 05:38 Hct 26.0 % (37.0-47.0) L 04/18/25 05:38 MCV 69.3 fL (80.0-100.0) L 04/18/25 05:38 MCH 20.0 pg (25.0-34.0) L 04/18/25 05:38 MCHC 28.8 g/dL (32.0-36.0) L 04/18/25 05:38 RDW Std Deviation 53.2 fL (36.4-46.3) H 04/18/25 05:38 RDW Coeff of Falguni 22.3 % (11.5-14.5) H 04/18/25 05:38 Plt Count 486 K/uL (130-400) H 04/18/25 05:38 MPV 8.6 fL (9.4-12.4) L 04/18/25 05:38 Immature Gran % (Auto) 0.7 % 04/18/25 05:38 Neut % (Auto) 81.8 % 04/18/25 05:38 Lymph % (Auto) 7.3 % 04/18/25 05:38 Coffee % (Auto) 9.1 % 04/18/25 05:38 Eos % (Auto) 0.7 % 04/18/25 05:38 Baso % (Auto) 0.4 % 04/18/25 05:38 Neut # (Auto) 11.14 K/uL (1.40-6.50) H 04/18/25 05:38 Lymph # (Auto) 1.00 K/uL (1.20-3.40) L 04/18/25 05:38 Coffee # (Auto) 1.24 K/uL (0.11-0.59) H 04/18/25 05:38 Eos # (Auto) 0.09 K/uL (0.00-0.50) 04/18/25 05:38 Baso # (Auto) 0.05 K/uL (0.00-0.20) 04/18/25 05:38 Immature Gran # (Auto) 0.09 K/uL (0.01-0.20) 04/18/25 05:38 Polychromasia 1+ 04/18/25 05:38 Hypochromasia Present 04/18/25 05:38 Anisocytosis Present 04/18/25 05:38 Microcytosis Present 04/18/25 05:38 Spherocytes 1+ 04/15/25 12:20 Ovalocytes 1+ 04/18/25 05:38 Sodium 136 mmol/L (136-145) 04/18/25 05:38 Potassium 4.4 mmol/L (3.5-5.1) 04/18/25 05:38 Chloride 106 mmol/L (98-107) 04/18/25 05:38 Carbon Dioxide 24 mmol/L (21-32) 04/18/25 05:38 Anion Gap 6 (3-11) 04/18/25 05:38 BUN 8 mg/dl (6-23) 04/18/25 05:38 Creatinine 0.81 mg/dl (0.6-1.2) 04/18/25 05:38 Est Cr Clr Drug Dosing 65.5 ml/min 04/18/25 05:38 eGFR 75.19 04/18/25 05:38 BUN/Creatinine Ratio 9.9 (10-20) L 04/18/25 05:38 Glucose 135 mg/dl (70-99(Fasting)) H 04/18/25 05:38 POC Glucose 143 mg/dl (70-99) H 04/18/25 07:52 Calcium 8.2 mg/dl (8.6-10.3) L 04/18/25 05:38 Phosphorus 2.9 mg/dl (2.5-4.9) 04/16/25 07:37 Magnesium 1.7 mg/dl (1.7-2.4) 04/18/25 05:38 Iron 15 mcg/dl (35- Rest of the cardiomediastinal silhouette is within normal limits. No acute osseous abnormality. IMPRESSION: 1. Suboptimal radiograph due to incomplete inspiration. 2. Still seen thickening of right paratracheal stripe 3. Bulky right hilum is detected. Possibility of pulmonary arterial hypertension. Suggested echocardiographic correlation.unchanged Electronically signed by Connor Collier 04-18-2025 08:25 AM (2) Anemia Anemia type: unspecified type Qualified Code(s): D64.9 - Anemia, unspecified
--- NOTE | 2025-04-19 04:16 | Surgery Progress Note ---
Date of Service April 19, 2025 Assessment & Plan (1) Intussusception: Plan: Patient is status post right hemicolectomy on 04/16/2025 (postop day #3) Continue patient on clear liquids and do not advance diet until patient has more meaningful return of bowel function Continue analgesics as needed Continue antiemetics as needed Ambulation has been encouraged Check a.m. labs when available Lovenox is in place for DVT prevention Doing well. No acute issues. Ambulate today. Awaiting full return of bowel function Admission and Anticipated Discharge Date Admission Date: April 15, 2025 Subjective Patient is resting comfortably in bed at the present time. She notes that she has not had a bowel movement or passed any flatus since her surgery. She denies any nausea or vomiting. She is tolerating clears without nausea or vomiting or exacerbating abdominal pain but reports she does not really have much in the way of an appetite yet. Patient notes pain along her surgical incision. Physical Exam Gastrointestinal (Abdomen): Abdomen is soft with minimal distention. Surgical incision examined and is clean, dry, and intact with izabel. Expected tenderness noted along surgical incision. Results & Data Vital Signs (Past 12 Hours) Vital Signs Temp Pulse Pulse Pulse Resp BP BP 04/19/25 02:59 36.8 C 80 18 127/75 04/18/25 22:36 36.3 C L 88 18 120/71 04/18/25 21:46 89 04/18/25 21:05 92 H 117/70 04/18/25 20:00 04/18/25 19:11 37.3 C 93 H 18 98/59 L Pulse Ox O2 Del Method O2 Flow Rate 04/19/25 02:59 98 Nasal Cannula 2 04/18/25 22:36 96 Nasal Cannula 2 04/18/25 21:46 04/18/25 21:05 95 Nasal Cannula 1 04/18/25 20:00 Nasal Cannula 1 04/18/25 19:11 90 Room Air PG Care Time/CCT Total # of Minutes Spent Total Time Spent with Patient: Total time spent is greater than 50% in coordination of care (as documented) at patient's floor/unit and/or counseling patient: Coding Level of Care Code 84376 Post Operative Follow-Up Diagnoses Intussusception K56.1
[2025-04-19 07:52] LABS: Hematocrit (blood only) 29.5 % (37.0-47.0); Hemoglobin 8.3 g/dl (12.0-16.0); Immature Granulocytes # (auto) 0.11 K/uL (0.01-0.20); Immature Granulocytes % (auto) 1.0 %; Mean Corpuscular Hemoglobin 20.0 pg (25.0-34.0); Mean Corpuscular Volume 71.3 fL (80.0-100.0); Platelet Count 533 K/uL (130-400); RDW Standard Deviation 57.1 fL (36.4-46.3); Red Blood Count 4.14 M/uL (4.20-5.40); White Blood Count 10.85 K/ul (4.8-10.8)
[2025-04-19 08:07] LABS: Anion Gap 8.0 (3-11); Blood Urea Nitrogen 5.0 mg/dl (6-23); Calcium 8.9 mg/dl (8.6-10.3); Carbon Dioxide 24.0 mmol/L (21-32); Chloride 106.0 mmol/L (98-107); Creatinine Clr Calc Pharmacy 68.7 ml/min; Glucose 132.0 mg/dl (70-99(Fasting)); Potassium 4.0 mmol/L (3.5-5.1); Sodium 138.0 mmol/L (136-145)
[2025-04-19] MEDS ORDERED: Nursing to Pharmacy Communication SCH (08:15)
[2025-04-19 08:23] LABS: Anisocytosis Present; Microcytosis Present; Polychromasia 2+
--- NOTE | 2025-04-19 12:34 | Hospitalist Progress Note ---
Date of Service April 19, 2025 Assessment & Plan (1) Intussusception: (2) Anemia: (3) Diarrhea: (4) Hypokalemia: (5) Type 2 diabetes mellitus: (6) Hypertension: (7) Dyslipidemia: (8) DANYEL (obstructive sleep apnea): Plan 75 year old female with PMH significant for type 2 diabetes, dyslipidemia, CKD III, COPD, DANYEL, 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 Intussusception Patient presented with abdominal pain x4 days with associated diarrhea CT abdomen revealed ileocolic intussusception with associated wall thickening consistent with venous engorgement and concerning for mucosal mass Surgery consulted. Stable post op stable Day #3 exploratory laparotomy and right hemicolectomy for ileocolonic intussusception Pain control adequate Continue clear liquids for now per surgery until bowel function improving Patient spiked low-grade temp the evening of surgery. Chest x-ray without infiltrate. Fever could be related to postsurgery atelectasis. Will continue incentive spirometry and add flutter therapy. Cultures are negative. If cultures remain negative discontinue Invanz Anemia Hgb 7.1-->7.8-->8.3 this am Patient has iron deficiency, will need supplementation. Given IV Venofer x 1. Will tolerating diet start p.o. iron Trend H&H. No signs of colonic malignancy during surgical procedure. Pathology pending Iron studies, vitamin B12, folate studies were reviewed Hypokalemia K 2.6 -->3.6--> 4.9-->4.4--> 4.0 this am. Stable Received repletion Continue to replete as needed Restart diuretics Diarrhea resolved Could have been secondary to intussusception, metformin use, senna use Stool PCR neg Type 2 diabetes Hold home metformin and glipizide BSG ACHS and SSI while inpatient Hypertension Continue hydralazine and metoprolol Restart diuretics when able. on hold due to hypokalemia and dehydration Dyslipidemia Continue rosuvastatin Cardiac pacemaker in situ Continue baby aspirin DANYEL CPAP HS Possible pulmonary hypertension Recent echo as outpt. 03/11/25 DVT Prophylaxis: Micha Chow I spent a total of 50 coordinating, documenting and providing care for this patient. Admission and Anticipated Discharge Date Admission Date: April 15, 2025 Subjective Chart, data and 24 her vital signs reviewed. No overnight events. Vital signs are stable. She remains afebrile. Urine cultures essentially negative. Blood culture negative to date. Still has not had a bowel movement or passed any flatus since her surgery. She denies any nausea or vomiting. She is tolerating clears without nausea or vomiting or exacerbating abdominal pain. Patient has much less abdominal pain now. Patient is off O2 now. Review of Systems Review of Systems: Constitutional- no fever; no chills Pulmonary- no cough, no wheezing, no shortness of breath Cardiac- no chest pain, no palpitations, no orthopnea, no dependent edema GI- no nausea, no vomiting, she does have some incisional pain but much improved today - no dysuria, no hematuria Neuro- no headaches, no focal neurologic symptoms Physical Exam Physical Exam: General- adult elderly female seen at bedside Eyes- PERRL, EOMI Neck- supple, no JVD, no adenopathy, Lungs- clear to auscultation and percussion Heart- regular rhythm; Abdomen-dressing intact, no drainage Extremities- no pretibial edema, no calf tenderness; Neuro- alert, oriented x 3; PERRL, EOMI; no focal deficits Skin- warm & dry Results & Data Results & Data Vital Signs (Past 12 Hours) Vital Signs Temp Pulse Pulse Pulse Resp BP Pulse Ox 04/19/25 12:23 04/19/25 11:33 36.8 C 73 17 131/77 94 04/19/25 07:55 36.8 C 83 18 122/71 94 04/19/25 05:41 70 04/19/25 02:59 36.8 C 80 18 127/75 98 O2 Del Method O2 Flow Rate 04/19/25 12:23 Room Air 04/19/25 11:33 Room Air 04/19/25 07:55 Room Air 04/19/25 05:41 04/19/25 02:59 Nasal Cannula 2 Laboratory Results Short CBC 04/19/25 Range/Units 07:16 WBC 10.85 H (4.8-10.8) K/ul Hgb 8.3 L (12.0-16.0) g/dl Hct 29.5 L (37.0-47.0) % Plt Count 533 H (130-400) K/uL [facility] 04/19/25 07:16 Sodium 138 Potassium 4.0 Chloride 106 Carbon Dioxide 24 BUN 5 L Creatinine 0.77 Glucose 132 H Calcium 8.9 (2) Anemia Anemia type: unspecified type Qualified Code(s): D64.9 - Anemia, unspecified
[2025-04-19] MEDS: ROSUVASTATIN CALCIUM 20 MG TAB PO SCH (20:33)
[2025-04-20 06:12] LABS: Hematocrit (blood only) 29.6 % (37.0-47.0); Hemoglobin 8.1 g/dl (12.0-16.0); Mean Corpuscular Hemoglobin 19.8 pg (25.0-34.0); Mean Corpuscular Volume 72.2 fL (80.0-100.0); Platelet Count 455 K/uL (130-400); RDW Standard Deviation 59.2 fL (36.4-46.3); Red Blood Count 4.10 M/uL (4.20-5.40); White Blood Count 9.12 K/ul (4.8-10.8)
[2025-04-20 06:29] LABS: Anion Gap 9.0 (3-11); Blood Urea Nitrogen 5.0 mg/dl (6-23); Calcium 8.5 mg/dl (8.6-10.3); Carbon Dioxide 22.0 mmol/L (21-32); Chloride 109.0 mmol/L (98-107); Creatinine Clr Calc Pharmacy 70.6 ml/min; Glucose 139.0 mg/dl (70-99(Fasting)); Potassium 3.8 mmol/L (3.5-5.1); Sodium 140.0 mmol/L (136-145)
--- NOTE | 2025-04-20 09:13 | Surgery Progress Note ---
Date of Service April 20, 2025 Assessment & Plan (1) Intussusception: Plan POD # 4 s/p ex lap, right hemicolectomy avss postop pain moderate no return of bowel function yet Plan: continue clear liquids until passing gas continue IV fluids continue pain management as needed, will add back IV Tylenol to get pain better controlled to increase activity encouraged OOB to chair and ambulation PT/OT ordered scds an lovenox for DVT prophylaxis continue medical management repeat am labs await pathology Dr. Persaud has seen patient and agrees with above. Admission and Anticipated Discharge Date Admission Date: April 15, 2025 Subjective feeling fatigued today feeling bloated and nauseous this am not passing gas yet but feels like she might have to has not been out of bed since Sunday abdominal pain about 6/10, Oxycodone doesn't seem to last long. Physical Exam Constitutional: WD/WN, vitals as above + obese, cooperative and comfortable; no acute distress and not ill appearing Respiratory: normal respiratory effort; no respiratory distress, no labored breathing and no retractions Gastrointestinal (Abdomen): Inspection/Auscultation: abdomen normal to inspection, + abdomen distended (mild) and + abdominal surgical incision (c/d/i with izabel) Percussion/Palpation: + abdomen tender (generalized tenderness, midline incision) and abdomen soft; no guarding and abdomen not rigid Skin: no rashes, warm and dry Psychiatric: Orientation: alert and oriented x 3 Results & Data Vital Signs (Past 12 Hours) Vital Signs Temp Pulse Pulse Resp BP Pulse Ox O2 Del Method 04/20/25 08:09 36.8 C 70 75 20 124/80 94 Room Air Laboratory Results 04/20/25 04/20/25 04/20/25 Range/Units 11:50 07:21 05:44 WBC 9.12 (4.8-10.8) K/ul RBC 4.10 L (4.20-5.40) M/uL Hgb 8.1 L (12.0-16.0) g/dl Hct 29.6 L (37.0-47.0) % MCV 72.2 L (80.0-100.0) fL MCH 19.8 L (25.0-34.0) pg MCHC 27.4 L (32.0-36.0) g/dL RDW Std Deviation 59.2 H (36.4-46.3) fL RDW Coeff of Falguni 24.0 H (11.5-14.5) % Plt Count 455 H (130-400) K/uL MPV 8.5 L (9.4-12.4) fL Absolute Nucleated RBC 0.02 (0.00-0.12) K/uL Nucleated RBC % (auto) 0.2 % Sodium 140 (136-145) mmol/L Potassium 3.8 (3.5-5.1) mmol/L Chloride 109 H (98-107) mmol/L Carbon Dioxide 22 (21-32) mmol/L Anion Gap 9 (3-11) BUN 5 L (6-23) mg/dl Creatinine 0.75 (0.6-1.2) mg/dl Est Cr Clr Drug Dosing 70.6 ml/min eGFR 82.46 BUN/Creatinine Ratio 6.7 L (10-20) Glucose 139 H (70-99(Fasting)) mg/dl POC Glucose 127 H 136 H (70-99) mg/dl Calcium 8.5 L (8.6-10.3) mg/dl Blood Type Antibody Screen Crossmatch 04/19/25 04/19/25 04/15/25 Range/Units 20:22 16:22 13:56 WBC (4.8-10.8) K/ul RBC (4.20-5.40) M/uL Hgb (12.0-16.0) g/dl Hct (37.0-47.0) % MCV (80.0-100.0) fL MCH (25.0-34.0) pg MCHC (32.0-36.0) g/dL RDW Std Deviation (36.4-46.3) fL RDW Coeff of Falguni (11.5-14.5) % Plt Count (130-400) K/uL MPV (9.4-12.4) fL Absolute Nucleated RBC (0.00-0.12) K/uL Nucleated RBC % (auto) % Sodium (136-145) mmol/L Potassium (3.5-5.1) mmol/L Chloride (98-107) mmol/L Carbon Dioxide (21-32) mmol/L Anion Gap (3-11) BUN (6-23) mg/dl Creatinine (0.6-1.2) mg/dl Est Cr Clr Drug Dosing ml/min eGFR BUN/Creatinine Ratio (10-20) Glucose (70-99(Fasting)) mg/dl POC Glucose 135 H 113 H (70-99) mg/dl Calcium (8.6-10.3) mg/dl Blood Type AB Positive Antibody Screen NEGATIVE Crossmatch See Detail
[2025-04-20] MEDS: ACETAMINOPHEN 1,000 MG/100 ML VIAL IV PRN (09:43)
--- NOTE | 2025-04-20 15:32 | Hospitalist Progress Note ---
Date of Service April 20, 2025 Assessment & Plan (1) Intussusception: (2) Anemia: (3) Diarrhea: (4) Hypokalemia: (5) Type 2 diabetes mellitus: (6) Hypertension: (7) Dyslipidemia: (8) DANYEL (obstructive sleep apnea): Plan Ms Zelaya is a 75 year old female with PMH significant for type 2 diabetes, dyslipidemia, CKD III, COPD, DANYEL, 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 Patient is now s/p right hemicolectomy on 04/16/2025. Post op course complicated bylikely ileus. #Intussusception s/p right hemicolectomy Patient presented with abdominal pain x4 days with associated diarrhea CT abdomen revealed ileocolic intussusception with associated wall thickening consistent with venous engorgement and concerning for mucosal mass Surgery consulted, s/p right hemicolectomy 04/16 Reviewed current recommendations: -continue IVF -continue CLD, no bowel function as of yet -PT/OT ongoing -encourage OOB in chair #RUE erythema suspect thrombophlebitis RUE US ordered continue lovenox heat to area #Fever resolved brief low grade fever, UA with small colonies but no urinary symptoms, leukocytosis resolved, blood cultures negative Discontinue IV antibiotics encourage Is/Flutter valve and ambulation #Chronic Anemia, AVINASH hgb stable this admission s/p IV Venofer x 1. Will tolerating diet start p.o. iron as able Reportedly no signs of colonic malignancy during surgical procedure. Pathology pending at this time #Hypokalemia K 2.6 -->3.6--> 4.9-->4.4--> 4.0 this am. Stable Received repletion Continue to replete as needed #Diarrhea POA, resolved likely secondary to intussusception Stool PCR neg #Type 2 diabetes Hold home metformin and glipizide BSG ACHS and SSI while inpatient #Hypertension Continue hydralazine and metoprolol Restart diuretics when able. #Dyslipidemia Continue rosuvastatin #Cardiac pacemaker in situ Continue baby aspirin #DANYEL CPAP HS #Possible pulmonary hypertension Recent echo as outpt. 03/11/25 DVT Prophylaxis: SCDs Lovenox I spent a total of 55 coordinating, documenting and providing care for this pat ient. Admission and Anticipated Discharge Date Admission Date: April 15, 2025 Subjective Evaluated at bedside Discussed patient's nausea--she reports she is tolerating water, jello, and nam[place] ice. She feels that even if she weren't s/p procedure she feels she would be nauseated with the broth She states that she is not passing gas, and does endorse feeling bloated Denies bowel movement does report right antecubital pain 2/2 PIV site Physical Exam Constitutional: WD/WN, vitals as above Respiratory: normal respiratory effort, lungs clear to auscultation Cardiovascular: RRR, no murmur, no edema Gastrointestinal (Abdomen): tender, bloated abdomen, BS high pitched Skin: RUE erythema in AC area with chord like firmness over prior PIV site Results & Data Results & Data Vital Signs (Past 12 Hours) Vital Signs Temp Pulse Pulse Resp BP BP Pulse Ox 04/20/25 14:46 36.6 C 75 18 111/65 93 04/20/25 12:09 36.6 C 75 80 19 128/76 92 04/20/25 09:00 86 129/74 04/20/25 08:09 36.8 C 70 75 20 124/80 94 O2 Del Method 04/20/25 14:46 Room Air 04/20/25 12:09 Room Air 04/20/25 09:00 04/20/25 08:09 Room Air Laboratory Results Short CBC 04/20/25 Range/Units 05:44 WBC 9.12 (4.8-10.8) K/ul Hgb 8.1 L (12.0-16.0) g/dl Hct 29.6 L (37.0-47.0) % Plt Count 455 H (130-400) K/uL BMP 04/20/25 05:44 Sodium 140 Potassium 3.8 Chloride 109 H Carbon Dioxide 22 BUN 5 L Creatinine 0.75 Glucose 139 H Calcium 8.5 L Medications Administered Home Medications Medication Instructions Recorded Confirmed Last Taken glipizide 10 mg tablet, extended 20 mg PO QAM 07/17/24 04/15/25 Unknown release 24 hr hydrochlorothiazide 25 mg tablet 25 mg PO DAILY 07/17/24 04/15/25 Unknown metformin 500 mg tablet,extended 500 - 1,000 mg PO DIRECTED 07/17/24 04/15/25 Unknown release 24 hr metoprolol tartrate 25 mg tablet 25 mg PO BID 07/17/24 04/15/25 Unknown rosuvastatin 40 mg tablet 20 mg PO DAILY 07/17/24 04/15/25 Unknown spironolactone 25 mg tablet 12.5 mg PO DAILY 07/17/24 04/15/25 Unknown albuterol sulfate 90 mcg/actuation 2 puff inhalation Q4H PRN Wheezing 04/15/25 04/15/25 Unknown aerosol inhaler aspirin 81 mg chewable tablet 81 mg PO HS 04/15/25 04/15/25 04/14/25 hydralazine 25 mg tablet 25 mg PO TID 04/15/25 04/15/25 Unknown Active Medications Generic Name Dose Route Start Last Admin Trade Name Freq PRN Reason Stop Dose Admin Aspirin 81 mg 04/15/25 21:00 04/19/25 20:33 Aspirin 81 Mg Ectab PO 05/15/25 20:59 81 mg HS DAMIR Administration Cyanocobalamin 500 mcg 04/18/25 09:00 04/20/25 09:47 Cyanocobalamin (B-12) 500 Mcg Tablet PO 05/18/25 08:59 500 mcg QAM DAMIR Administration Enoxaparin Sodium 40 mg 04/17/25 11:00 04/20/25 09:47 Enoxaparin Inj 40 Mg/0.4 Ml Syr SQ 05/17/25 10:59 40 mg QAM DAMIR Administration Hydralazine HCl 25 mg 04/15/25 21:00 04/20/25 14:49 Hydralazine Hcl 25 Mg Tab PO 05/15/25 20:59 25 mg TID DAMIR Administration Sodium Chloride 1,000 mls @ 100 mls/hr 04/17/25 20:15 04/20/25 05:23 Nss IV 04/20/25 20:14 100 mls/hr .Q10H DAMIR Administration Acetaminophen 1,000 mg in 100 mls @ 400 mls/hr 04/20/25 09:12 04/20/25 10:06 Ofirmev IV 04/23/25 09:11 Infused Q8H PRN Infusion Pain Insulin Aspart 0 units 04/16/25 21:00 04/20/25 12:05 Insulin Aspart Per Unit Charge SC 05/16/25 11:59 Not Given ACHS DAMIR Metoprolol Tartrate 25 mg 04/15/25 21:00 04/20/25 09:12 Metoprolol Tartrate 25 Mg Tab PO 05/15/25 20:59 25 mg BID DAMIR Administration Morphine Sulfate 2 mg 04/16/25 16:40 04/17/25 14:21 Morphine Sulfate 2 Mg/Ml Carp IV 04/30/25 16:39 2 mg Q3H PRN Administration Moderate Pain (Scale 4, 5, 6) Morphine Sulfate 4 mg 04/16/25 16:40 04/18/25 08:54 Morphine Sulfate 4 Mg/Ml 1 Ml Carp\Vial IV 04/30/25 16:39 4 mg Q3H PRN Administration Severe Pain (Scale 7, 8, 9,10) Ondansetron HCl 4 mg 04/15/25 18:25 04/19/25 23:51 Ondansetron Inj 2 Mg/Ml 2 Ml Vial IV 05/15/25 18:24 4 mg Q6H PRN Administration Nausea Oxycodone HCl 10 mg 04/16/25 16:40 04/20/25 05:33 Oxycodone Hcl Ir 5 Mg Tab (Immediate Release) PO 04/30/25 16:39 10 mg Q4H PRN Administration Severe Pain (Scale 7, 8, 9,10) Rosuvastatin Calcium 20 mg 04/19/25 21:00 04/19/25 20:33 Rosuvastatin Calcium 20 Mg Tab PO 05/19/25 20:59 20 mg HS DAMIR Administration (2) Anemia Anemia type: unspecified type Qualified Code(s): D64.9 - Anemia, unspecified
[2025-04-20] MEDS: POTASSIUM CHLORIDE PWD 20 MEQ PACK PO SCH (16:05)
[2025-04-21 06:34] LABS: Hematocrit (blood only) 31.0 % (37.0-47.0); Hemoglobin 8.5 g/dl (12.0-16.0); Mean Corpuscular Hemoglobin 19.9 pg (25.0-34.0); Mean Corpuscular Volume 72.6 fL (80.0-100.0); Platelet Count 487 K/uL (130-400); RDW Standard Deviation 59.7 fL (36.4-46.3); Red Blood Count 4.27 M/uL (4.20-5.40); White Blood Count 9.60 K/ul (4.8-10.8)
[2025-04-21 06:52] LABS: Anion Gap 7.0 (3-11); Blood Urea Nitrogen 6.0 mg/dl (6-23); Calcium 8.7 mg/dl (8.6-10.3); Carbon Dioxide 23.0 mmol/L (21-32); Chloride 111.0 mmol/L (98-107); Creatinine Clr Calc Pharmacy 68.7 ml/min; Glucose 112.0 mg/dl (70-99(Fasting)); Magnesium 1.9 mg/dl (1.7-2.4); Potassium 3.9 mmol/L (3.5-5.1); Sodium 141.0 mmol/L (136-145)
--- NOTE | 2025-04-21 07:31 | Hospitalist Progress Note ---
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 Patient is now s/p right hemicolectomy on 04/16/2025. Post op course complicated by likely ileus. Patient now with bowel function and diet advanced. Working with PT/OT and possibly medically stable in next 24-48 hours for rehab once surgery agrees. #Intussusception s/p right hemicolectomy Patient presented with abdominal pain x4 days with associated diarrhea CT abdomen revealed ileocolic intussusception with associated wall thickening consistent with venous engorgement and concerning for mucosal mass Surgery consulted, s/p right hemicolectomy 04/16 Reviewed current recommendations: -Advanced diet to full liquids -PT/OT ongoing, plan for Rehab -encourage OOB in chair and more ambulation #SVT of RUE RUE US revealed SVT in antecubital fossa, no DVT Will continue 40mg IV enoxparin, can consider 2.5 eliquis bid for total of 7-10 days upon d/c Topical volarten to area and warm compress #Fever resolved brief low grade fever, UA with small colonies but no urinary symptoms, leukocytosis resolved, blood cultures negative Discontinue IV antibiotics encourage Is/Flutter valve and ambulation #Chronic Anemia, AVINASH hgb stable this admission s/p IV Venofer x 1. Will tolerating diet start p.o. iron as able Reportedly no signs of colonic malignancy during surgical procedure. Pathology pending at this time #Hypokalemia K 2.6 -->3.6--> 4.9-->4.4--> 4.0 this am. Stable Received repletion Continue to replete as needed #Diarrhea POA, resolved likely secondary to intussusception Stool PCR neg #Type 2 diabetes Hold home metformin and glipizide BSG ACHS and SSI while inpatient #Hypertension Continue hydralazine and metoprolol Restart diuretics when able. #Dyslipidemia Continue rosuvastatin #Cardiac pacemaker in situ Continue baby aspirin #DANYEL CPAP HS #Possible pulmonary hypertension Recent echo as outpt. 03/11/25 DVT Prophylaxis: Micha Chow I spent a total of 57 coordinating, documenting and providing care for this patient. Admission and Anticipated Discharge Date Admission Date: April 15, 2025 Subjective Reports feeling much better today as patient has passed gas and had small bowel movement, excited to advance diet Reports walk lap around the unit and excited to do more activity Denies any new symtpoms RUE swelling in arm feeling much improved since removal of IV Physical Exam Constitutional: WD/WN, vitals as above Respiratory: normal respiratory effort, lungs clear to auscultation Cardiovascular: RRR, no murmur, no edema Results & Data Results & Data Vital Signs (Past 12 Hours) Vital Signs Temp Pulse Pulse Pulse Resp BP Pulse Ox 04/21/25 03:36 75 23 95 04/21/25 00:08 04/20/25 20:05 36.6 C 76 76 18 137/75 95 O2 Del Method FiO2 04/21/25 03:36 21 04/21/25 00:08 Room Air 04/20/25 20:05 Room Air Laboratory Results Short CBC 04/21/25 Range/Units 06:15 WBC 9.60 (4.8-10.8) K/ul Hgb 8.5 L (12.0-16.0) g/dl Hct 31.0 L (37.0-47.0) % Plt Count 487 H (130-400) K/uL BMP 04/21/25 06:15 Sodium 141 Potassium 3.9 Chloride 111 H Carbon Dioxide 23 BUN 6 Creatinine 0.77 Glucose 112 H Calcium 8.7 Medications Administered Home Medications Medication Instructions Recorded Confirmed Last Taken glipizide 10 mg tablet, extended 20 mg PO QAM 07/17/24 04/15/25 Unknown release 24 hr hydrochlorothiazide 25 mg tablet 25 mg PO DAILY 07/17/24 04/15/25 Unknown metformin 500 mg tablet,extended 500 - 1,000 mg PO DIRECTED 07/17/24 04/15/25 Unknown release 24 hr metoprolol tartrate 25 mg tablet 25 mg PO BID 07/17/24 04/15/25 Unknown rosuvastatin 40 mg tablet 20 mg PO DAILY 07/17/24 04/15/25 Unknown spironolactone 25 mg tablet 12.5 mg PO DAILY 07/17/24 04/15/25 Unknown albuterol sulfate 90 mcg/actuation 2 puff inhalation Q4H PRN Wheezing 04/15/25 04/15/25 Unknown aerosol inhaler aspirin 81 mg chewable tablet 81 mg PO HS 04/15/25 04/15/25 04/14/25 hydralazine 25 mg tablet 25 mg PO TID 04/15/25 04/15/25 Unknown Active Medications Generic Name Dose Route Start Last Admin Trade Name Freq PRN Reason Stop Dose Admin Acetaminophen 650 mg 04/21/25 08:53 04/21/25 12:30 Acetaminophen 325 Mg Tab PO 05/21/25 08:52 650 mg Q4H PRN Administration Mild Pain (Scale 1, 2, 3) Aspirin 81 mg 04/15/25 21:00 04/20/25 20:38 Aspirin 81 Mg Ectab PO 05/15/25 20:59 81 mg HS DAMIR Administration Cyanocobalamin 500 mcg 04/18/25 09:00 04/21/25 09:59 Cyanocobalamin (B-12) 500 Mcg Tablet PO 05/18/25 08:59 500 mcg QAM DAMIR Administration Enoxaparin Sodium 40 mg 04/17/25 11:00 04/21/25 10:00 Enoxaparin Inj 40 Mg/0.4 Ml Syr SQ 05/17/25 10:59 40 mg QAM DAMIR Administration Hydralazine HCl 25 mg 04/15/25 21:00 04/21/25 10:00 Hydralazine Hcl 25 Mg Tab PO 05/15/25 20:59 25 mg TID DAMIR Administration Insulin Aspart 0 units 04/16/25 21:00 04/21/25 12:32 Insulin Aspart Per Unit Charge SC 05/16/25 11:59 Not Given ACHS DAMIR Metoprolol Tartrate 25 mg 04/15/25 21:00 04/21/25 10:00 Metoprolol Tartrate 25 Mg Tab PO 05/15/25 20:59 25 mg BID DAMIR Administration Morphine Sulfate 2 mg 04/16/25 16:40 04/17/25 14:21 Morphine Sulfate 2 Mg/Ml Carp IV 04/30/25 16:39 2 mg Q3H PRN Administration Moderate Pain (Scale 4, 5, 6) Morphine Sulfate 4 mg 04/16/25 16:40 04/18/25 08:54 Morphine Sulfate 4 Mg/Ml 1 Ml Carp\Vial IV 04/30/25 16:39 4 mg Q3H PRN Administration Severe Pain (Scale 7, 8, 9,10) Ondansetron HCl 4 mg 04/15/25 18:25 04/19/25 23:51 Ondansetron Inj 2 Mg/Ml 2 Ml Vial IV 05/15/25 18:24 4 mg Q6H PRN Administration Nausea Oxycodone HCl 10 mg 04/16/25 16:40 04/20/25 23:12 Oxycodone Hcl Ir 5 Mg Tab (Immediate Release) PO 04/30/25 16:39 10 mg Q4H PRN Administration Severe Pain (Scale 7, 8, 9,10) Phenol 1 sprays 04/21/25 09:53 04/21/25 10:57 Chloraseptic (Phenol) 1.4% Soln 180 Ml Btl MT 05/21/25 09:52 1 sprays Q4H PRN Administration Sore Throat Rosuvastatin Calcium 20 mg 04/19/25 21:00 04/20/25 20:38 Rosuvastatin Calcium 20 Mg Tab PO 05/19/25 20:59 20 mg HS DAMIR Administration
--- NOTE | 2025-04-21 08:56 | Surgery Progress Note ---
Date of Service April 21, 2025 Assessment & Plan (1) Intussusception: Plan POD # 5 s/p ex lap, right hemicolectomy avss postop pain moderate + bowel function Plan: Full liquid diet BOOST BID continue pain management as needed, alternate PO Oxycodone with Tylenol, IV Tylenol discontinued given advancing diet encouraged OOB to chair and ambulation PT/OT ordered scds an lovenox for DVT prophylaxis continue medical management await pathology Admission and Anticipated Discharge Date Admission Date: April 15, 2025 Subjective feeling better today passing gas and small formed pellet stool this am no n,v abdominal pain moderate controlled ambulated hallway OOB to chair no chest pain or shortness of breath pain in the right upper extremity at site of prior IV, ultrasound this am pending Physical Exam Constitutional: WD/WN, vitals as above cooperative and comfortable; no acute distress and not ill appearing Respiratory: normal respiratory effort; no respiratory distress and no labored breathing Gastrointestinal (Abdomen): Inspection/Auscultation: abdomen normal to inspection, normal bowel sounds and + abdominal surgical incision (C/d/i with izabel, mild erythema at izabel); abdomen not distended Percussion/Palpation: + abdomen tender (generalized) and abdomen soft; no guarding, abdomen not rigid and abdomen not firm Skin: no rashes, warm and dry Psychiatric: A+Ox3, euthymic affect Results & Data Vital Signs (Past 12 Hours) Vital Signs Temp Pulse Pulse Resp BP Pulse Ox O2 Del Method 04/21/25 07:38 36.9 C 91 H 16 139/75 91 Room Air 04/21/25 03:36 75 23 95 04/21/25 00:08 Room Air FiO2 04/21/25 07:38 04/21/25 03:36 21 04/21/25 00:08 Laboratory Results 04/21/25 04/21/25 04/20/25 Range/Units 07:21 06:15 20:16 WBC 9.60 (4.8-10.8) K/ul RBC 4.27 (4.20-5.40) M/uL Hgb 8.5 L (12.0-16.0) g/dl Hct 31.0 L (37.0-47.0) % MCV 72.6 L (80.0-100.0) fL MCH 19.9 L (25.0-34.0) pg MCHC 27.4 L (32.0-36.0) g/dL RDW Std Deviation 59.7 H (36.4-46.3) fL RDW Coeff of Falguni 24.7 H (11.5-14.5) % Plt Count 487 H (130-400) K/uL MPV 8.4 L (9.4-12.4) fL Sodium 141 (136-145) mmol/L Potassium 3.9 (3.5-5.1) mmol/L Chloride 111 H (98-107) mmol/L Carbon Dioxide 23 (21-32) mmol/L Anion Gap 7 (3-11) BUN 6 (6-23) mg/dl Creatinine 0.77 (0.6-1.2) mg/dl Est Cr Clr Drug Dosing 68.7 ml/min eGFR 79.90 BUN/Creatinine Ratio 7.8 L (10-20) Glucose 112 H (70-99(Fasting)) mg/dl POC Glucose 122 H 133 H (70-99) mg/dl Calcium 8.7 (8.6-10.3) mg/dl Phosphorus 3.4 (2.5-4.9) mg/dl Magnesium 1.9 (1.7-2.4) mg/dl Blood Type Antibody Screen Crossmatch 04/20/25 04/20/25 04/15/25 Range/Units 16:42 11:50 13:56 WBC (4.8-10.8) K/ul RBC (4.20-5.40) M/uL Hgb (12.0-16.0) g/dl Hct (37.0-47.0) % MCV (80.0-100.0) fL MCH (25.0-34.0) pg MCHC (32.0-36.0) g/dL RDW Std Deviation (36.4-46.3) fL RDW Coeff of Falguni (11.5-14.5) % Plt Count (130-400) K/uL MPV (9.4-12.4) fL Sodium (136-145) mmol/L Potassium (3.5-5.1) mmol/L Chloride (98-107) mmol/L Carbon Dioxide (21-32) mmol/L Anion Gap (3-11) BUN (6-23) mg/dl Creatinine (0.6-1.2) mg/dl Est Cr Clr Drug Dosing ml/min eGFR BUN/Creatinine Ratio (10-20) Glucose (70-99(Fasting)) mg/dl POC Glucose 123 H 127 H (70-99) mg/dl Calcium (8.6-10.3) mg/dl Phosphorus (2.5-4.9) mg/dl Magnesium (1.7-2.4) mg/dl Blood Type AB Positive Antibody Screen NEGATIVE Crossmatch See Detail
--- NOTE | 2025-04-21 09:03 | Ultrasound Report ---
RIGHT UPPER EXTREMITY VENOUS DOPPLER ULTRASOUND CLINICAL HISTORY: ?thrombophlebitis. Palpable lump. COMPARISON STUDY: No previous studies for comparison. TECHNIQUE: Sonography of the venous system of the right upper extremity was performed. FINDINGS: The right internal jugular, subclavian, axillary, brachial, radial and ulnar veins are rossi nt. Note is made of superficial thrombus within the right basilic vein within the antecubital fossa w hich extends for 8.1 cm in length. IMPRESSION: 1. Superficial thrombus within the right basilic vein within the antecubital fossa which extends for 8.1 cm. 2. No deep venous thrombus within the right upper extremity. ACT 112: Negative or not required by law. Electronically signed by: Chris Peoples M.D. 04/21/2025 9:01 AM
[2025-04-21] MEDS ORDERED: COUGH DROP (SUGAR FREE) LOZ 24 LOZ/1 BOX BUCCAL PRN (09:53)
[2025-04-21] MEDS: CHLORASEPTIC (PHENOL) 1.4% SOLN 180 ML BTL MT PRN (10:57)
[2025-04-21] MEDS: COUGH DROP (SUGAR FREE) LOZ 24 LOZ/1 BOX BUCCAL STA (11:02)
[2025-04-21] MEDS: ACETAMINOPHEN 325 MG TAB PO PRN (12:30)
[2025-04-21] MEDS: POLYETHYLENE (MIRALAX) 17 GM PACK PO STA (15:22)
[2025-04-21] MEDS: DICLOFENAC SOD 1% GEL 100 GM TUBE EXT SCH (20:08)
--- NOTE | 2025-04-22 10:05 | Surgery Progress Note ---
Date of Service April 22, 2025 Assessment & Plan (1) Intussusception: Plan POD # 6 s/p ex lap, right hemicolectomy avss postop pain mild, controlled + bowel function Plan: low fiber diet BOOST BID continue pain management as needed, alternate PO Oxycodone with Tylenol, encouraged OOB to chair and ambulation PT/OT ordered scds an lovenox for DVT prophylaxis continue medical management await pathology okay from surgical standpoint for discharge tomorrow pending tolerating advanced diet Dr. Persaud has seen and examined patient. Admission and Anticipated Discharge Date Admission Date: April 15, 2025 Subjective feeling better abdominal pain controlled with Tylenol multiple loose bowel movements last night and passing gas tolerating full liquids would like more to eat if possible ambulating in hallway Right upper arm is feeling better Physical Exam Constitutional: WD/WN, vitals as above + obese, cooperative and comfortable; no acute distress and not ill appearing Respiratory: normal respiratory effort; no respiratory distress and no labored breathing Gastrointestinal (Abdomen): Inspection/Auscultation: abdomen normal to inspection and + abdominal surgical incision (c/d/i with izabel ); abdomen not distended Percussion/Palpation: + abdomen tender (mild at incision site ) and abdomen soft; no guarding, abdomen not rigid and abdomen not firm Skin: no rashes, warm and dry Psychiatric: A+Ox3, euthymic affect Results & Data Vital Signs (Past 12 Hours) Vital Signs Temp Pulse Pulse Resp BP Pulse Ox O2 Del Method 04/22/25 08:07 37 C 87 16 142/76 H 95 Room Air 04/22/25 03:19 76 20 95 04/21/25 22:27 71 24 97 FiO2 04/22/25 08:07 04/22/25 03:19 21 04/21/25 22:27 21 Laboratory Results 04/22/25 04/22/25 04/21/25 Range/Units 11:43 07:47 21:05 POC Glucose 110 H 102 H 130 H (70-99) mg/dl Ferritin 04/21/25 04/21/25 Range/Units 16:19 06:15 POC Glucose 111 H (70-99) mg/dl Ferritin Pending
--- NOTE | 2025-04-22 15:36 | Hospitalist Progress Note ---
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 Patient is now s/p right hemicolectomy on 04/16/2025. Post op course complicated by likely ileus. Patient now with bowel function and diet advanced. Working with PT/OT and possibly medically stable in next 24-48 hours for rehab once surgery agrees. 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 Patient presented with abdominal pain x4 days with associated diarrhea CT abdomen revealed ileocolic intussusception with associated wall thickening consistent with venous engorgement and concerning for mucosal mass Surgery consulted, s/p right hemicolectomy 04/16 Pathology results showing mucinous adenocarcinoma with negative margin for invasive carcinoma and negative regional lymph node Diet advanced to low fiber; Continue PT OT, ambulation Possible DC to rehab in next couple of days #SVT of HELIOE HELIOE US revealed SVT in antecubital fossa, no DVT Will continue 40mg IV enoxparin, can consider 2.5 eliquis bid for total of 7-10 days upon d/c Topical volarten to area and warm compress #Fever resolved brief low grade fever, UA with small colonies but no urinary symptoms, leukocytosis resolved, blood cultures negative Discontinue IV antibiotics encourage Is/Flutter valve and ambulation #Chronic Anemia, AVINASH hgb stable this admission s/p IV Venofer x 1. Will tolerating diet start p.o. iron as able #Hypokalemia Received repletion Continue to replete as needed #Diarrhea POA, resolved likely secondary to intussusception Stool PCR neg #Type 2 diabetes Hold home metformin and glipizide BSG ACHS and SSI while inpatient #Hypertension Continue hydralazine and metoprolol Restart diuretics when able. #Dyslipidemia Continue rosuvastatin #Cardiac pacemaker in situ Continue baby aspirin #DANYEL CPAP HS #Possible pulmonary hypertension Recent echo as outpt. 6/18/25 DVT Prophylaxis: SCDs Lovenox Time spent evaluating patient, direct bedside care, chart review, placing orders, interpretation of diagnostic studies, discussion with consultants, patient, and family members, as well as other required patient management activities is 50 minutes Please note the above document was generated using voice recognition software. It may contain grammatical, syntax or spelling errors. Any formal questions or concerns about the content, text or information contained within the body of this dictation should be directly addressed to the provider for clarification Admission and Anticipated Discharge Date Admission Date: April 15, 2025 Subjective Patient seen and examined at bedside. She reports that she is able to tolerate low fiber diet without any issues. She denies any pain or discomfort. Review of Systems Review of Systems: All systems reviewed & are unremarkable except as noted in Subjective Physical Exam Physical Exam: General- adult elderly female seen at bedside Eyes- PERRL, EOMI Neck- supple, no JVD, no adenopathy, Lungs- clear to auscultation and percussion Heart- regular rhythm; Abdomen-dressing intact, no drainage Extremities- no pretibial edema, no calf tenderness; Neuro- alert, oriented x 3; PERRL, EOMI; no focal deficits Skin- warm & dry Results & Data Results & Data Vital Signs (Past 12 Hours) Vital Signs Temp Pulse Resp BP Pulse Ox O2 Del Method 04/22/25 12:20 36.6 C 78 18 158/75 H 97 Room Air 04/22/25 08:07 37 C 87 16 142/76 H 95 Room Air
[2025-04-23 07:27] LABS: Hematocrit (blood only) 29.6 % (37.0-47.0); Hemoglobin 8.3 g/dl (12.0-16.0); Immature Granulocytes # (auto) 0.04 K/uL (0.01-0.20); Immature Granulocytes % (auto) 0.5 %; Mean Corpuscular Hemoglobin 20.0 pg (25.0-34.0); Mean Corpuscular Volume 71.3 fL (80.0-100.0); Platelet Count 484 K/uL (130-400); RDW Standard Deviation 61.5 fL (36.4-46.3); Red Blood Count 4.15 M/uL (4.20-5.40); White Blood Count 7.69 K/ul (4.8-10.8)
[2025-04-23 07:42] LABS: Anion Gap 9.0 (3-11); Blood Urea Nitrogen 6.0 mg/dl (6-23); Calcium 8.6 mg/dl (8.6-10.3); Carbon Dioxide 25.0 mmol/L (21-32); Chloride 110.0 mmol/L (98-107); Creatinine Clr Calc Pharmacy 75.6 ml/min; Glucose 102.0 mg/dl (70-99(Fasting)); Potassium 3.3 mmol/L (3.5-5.1); Sodium 144.0 mmol/L (136-145)
[2025-04-23 07:53] LABS: Anisocytosis Present; Ovalocytes 1+; Polychromasia 1+
[2025-04-23] MEDS: POTASSIUM CHLORIDE / WTR 10 MEQ/100 ML PLCT IV SCH (10:19)
[2025-04-23] MEDS: POTASSIUM CHLORIDE PWD 20 MEQ PACK PO SCH (10:56)
[2025-04-23] MEDS: FUROSEMIDE INJ 20 MG/2 ML VIAL IV ONE ×2 (10:56→14:56)
--- NOTE | 2025-04-23 10:59 | Surgery Progress Note ---
Date of Service April 23, 2025 Assessment & Plan (1) Intussusception: (2) Mucinous adenocarcinoma of colon: Plan POD # 7 s/p ex lap, right hemicolectomy avss postop pain mild, controlled + bowel function path with mucinous adenocarcinoma however margins negative and 24/24 lymph nodes negative. Plan: Doing well from surgical standpoint for discharge Will need follow-up with Dr. Zapata next week, izabel will be removed in office low fiber diet Dr. Persaud has seen and examined patient. Admission and Anticipated Discharge Date Admission Date: April 15, 2025 Subjective feeling good from surgical standpoint but now frustrated as she is having bilateral lower extremity swelling and her potassium was low tolerated advanced diet no n/v pain controlled Physical Exam Constitutional: WD/WN, vitals as above + obese, cooperative and comfortable; no acute distress and not ill appearing Respiratory: normal respiratory effort; no respiratory distress, no labored breathing and no retractions Gastrointestinal (Abdomen): Inspection/Auscultation: abdomen normal to inspection; abdomen not distended Musculoskeletal: Bilateral lower extremity edema Skin: no rashes, warm and dry Psychiatric: A+Ox3, euthymic affect Results & Data Vital Signs (Past 12 Hours) Vital Signs Temp Pulse Resp BP Pulse Ox O2 Del Method 04/23/25 07:45 36.6 C 74 16 150/82 H 98 Room Air Laboratory Results 04/23/25 04/23/25 04/22/25 Range/Units 07:43 06:12 20:39 WBC 7.69 (4.8-10.8) K/ul RBC 4.15 L (4.20-5.40) M/uL Hgb 8.3 L (12.0-16.0) g/dl Hct 29.6 L (37.0-47.0) % MCV 71.3 L (80.0-100.0) fL MCH 20.0 L (25.0-34.0) pg MCHC 28.0 L (32.0-36.0) g/dL RDW Std Deviation 61.5 H (36.4-46.3) fL RDW Coeff of Falguni 25.2 H (11.5-14.5) % Plt Count 484 H (130-400) K/uL MPV 8.5 L (9.4-12.4) fL Immature Gran % (Auto) 0.5 % Neut % (Auto) 75.1 % Lymph % (Auto) 12.0 % Hutchinson % (Auto) 7.3 % Eos % (Auto) 4.8 % Baso % (Auto) 0.3 % Neut # (Auto) 5.78 (1.40-6.50) K/uL Lymph # (Auto) 0.92 L (1.20-3.40) K/uL Hutchinson # (Auto) 0.56 (0.11-0.59) K/uL Eos # (Auto) 0.37 (0.00-0.50) K/uL Baso # (Auto) 0.02 (0.00-0.20) K/uL Immature Gran # (Auto) 0.04 (0.01-0.20) K/uL Polychromasia 1+ Anisocytosis Present Ovalocytes 1+ Echinocytes 1+ Sodium 144 (136-145) mmol/L Potassium 3.3 L (3.5-5.1) mmol/L Chloride 110 H (98-107) mmol/L Carbon Dioxide 25 (21-32) mmol/L Anion Gap 9 (3-11) BUN 6 (6-23) mg/dl Creatinine 0.70 (0.6-1.2) mg/dl Est Cr Clr Drug Dosing 75.6 ml/min eGFR 89.58 BUN/Creatinine Ratio 8.6 L (10-20) Glucose 102 H (70-99(Fasting)) mg/dl POC Glucose 108 H 117 H (70-99) mg/dl Calcium 8.6 (8.6-10.3) mg/dl Ferritin (8-388) ng/ml MLH1 Promoter Methylat 04/22/25 04/22/25 04/21/25 Range/Units 16:21 11:43 06:15 WBC (4.8-10.8) K/ul RBC (4.20-5.40) M/uL Hgb (12.0-16.0) g/dl Hct (37.0-47.0) % MCV (80.0-100.0) fL MCH (25.0-34.0) pg MCHC (32.0-36.0) g/dL RDW Std Deviation (36.4-46.3) fL RDW Coeff of Falguni (11.5-14.5) % Plt Count (130-400) K/uL MPV (9.4-12.4) fL Immature Gran % (Auto) % Neut % (Auto) % Lymph % (Auto) % Hutchinson % (Auto) % Eos % (Auto) % Baso % (Auto) % Neut # (Auto) (1.40-6.50) K/uL Lymph # (Auto) (1.20-3.40) K/uL Hutchinson # (Auto) (0.11-0.59) K/uL Eos # (Auto) (0.00-0.50) K/uL Baso # (Auto) (0.00-0.20) K/uL Immature Gran # (Auto) (0.01-0.20) K/uL Polychromasia Anisocytosis Ovalocytes Echinocytes Sodium (136-145) mmol/L Potassium (3.5-5.1) mmol/L Chloride (98-107) mmol/L Carbon Dioxide (21-32) mmol/L Anion Gap (3-11) BUN (6-23) mg/dl Creatinine (0.6-1.2) mg/dl Est Cr Clr Drug Dosing ml/min eGFR BUN/Creatinine Ratio (10-20) Glucose (70-99(Fasting)) mg/dl POC Glucose 115 H 110 H (70-99) mg/dl Calcium (8.6-10.3) mg/dl Ferritin 152.5 (8-388) ng/ml MLH1 Promoter Methylat 04/16/25 Range/Units Unknown WBC (4.8-10.8) K/ul RBC (4.20-5.40) M/uL Hgb (12.0-16.0) g/dl Hct (37.0-47.0) % MCV (80.0-100.0) fL MCH (25.0-34.0) pg MCHC (32.0-36.0) g/dL RDW Std Deviation (36.4-46.3) fL RDW Coeff of Falguni (11.5-14.5) % Plt Count (130-400) K/uL MPV (9.4-12.4) fL Immature Gran % (Auto) % Neut % (Auto) % Lymph % (Auto) % Hutchinson % (Auto) % Eos % (Auto) % Baso % (Auto) % Neut # (Auto) (1.40-6.50) K/uL Lymph # (Auto) (1.20-3.40) K/uL Hutchinson # (Auto) (0.11-0.59) K/uL Eos # (Auto) (0.00-0.50) K/uL Baso # (Auto) (0.00-0.20) K/uL Immature Gran # (Auto) (0.01-0.20) K/uL Polychromasia Anisocytosis Ovalocytes Echinocytes Sodium (136-145) mmol/L Potassium (3.5-5.1) mmol/L Chloride (98-107) mmol/L Carbon Dioxide (21-32) mmol/L Anion Gap (3-11) BUN (6-23) mg/dl Creatinine (0.6-1.2) mg/dl Est Cr Clr Drug Dosing ml/min eGFR BUN/Creatinine Ratio (10-20) Glucose (70-99(Fasting)) mg/dl POC Glucose (70-99) mg/dl Calcium (8.6-10.3) mg/dl Ferritin (8-388) ng/ml MLH1 Promoter Methylat Pending
--- NOTE | 2025-04-23 14:42 | Hospitalist Progress Note ---
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 Patient is now s/p right hemicolectomy on 04/16/2025. Post op course complicated by likely ileus. Patient now with bowel function and diet advanced. Working with PT/OT and possibly medically stable in next 24-48 hours for rehab once surgery agrees. 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 Patient presented with abdominal pain x4 days with associated diarrhea CT abdomen revealed ileocolic intussusception with associated wall thickening consistent with venous engorgement and concerning for mucosal mass Surgery consulted, s/p right hemicolectomy 04/16 Pathology results showing mucinous adenocarcinoma with negative margin for invasive carcinoma and negative regional lymph node Diet advanced to low fiber; Continue PT OT, ambulation Possible DC to rehab in next couple of days Noted to have 2+ pitting edema in bilateral lower extremities; giving IV Lasix; 20 mg twice a day today and repeat tomorrow. #SVT of RUE RUE US revealed SVT in antecubital fossa, no DVT Will continue 40mg IV enoxparin, can consider 2.5 eliquis bid for total of 7-10 days upon d/c Topical volarten to area and warm compress #Fever resolved brief low grade fever, UA with small colonies but no urinary symptoms, leukocytosis resolved, blood cultures negative Discontinue IV antibiotics encourage Is/Flutter valve and ambulation #Chronic Anemia, AVINASH hgb stable this admission s/p IV Venofer x 1. Will tolerating diet start p.o. iron as able #Hypokalemia Received repletion Continue to replete as needed #Diarrhea POA, resolved likely secondary to intussusception Stool PCR neg #Type 2 diabetes Hold home metformin and glipizide BSG ACHS and SSI while inpatient #Hypertension Continue hydralazine and metoprolol Restart diuretics when able. #Dyslipidemia Continue rosuvastatin #Cardiac pacemaker in situ Continue baby aspirin #DANYEL CPAP HS #Possible pulmonary hypertension Recent echo as outpt. 03/11/25 DVT Prophylaxis: SCDs Lovenox Time spent evaluating patient, direct bedside care, chart review, placing orders, interpretation of diagnostic studies, discussion with consultants, patient, and family members, as well as other required patient management activities is 50 minutes Please note the above document was generated using voice recognition software. It may contain grammatical, syntax or spelling errors. Any formal questions or concerns about the content, text or information contained within the body of this dictation should be directly addressed to the provider for clarification Admission and Anticipated Discharge Date Admission Date: April 15, 2025 Subjective Patient seen and examined at bedside. She is tolerating diet well; not in distress. No significant events overnight Review of Systems Review of Systems: All systems reviewed & are unremarkable except as noted in Subjective Physical Exam Physical Exam: General- adult elderly female seen at bedside Eyes- PERRL, EOMI Neck- supple, no JVD, no adenopathy, Lungs- clear to auscultation and percussion Heart- regular rhythm; Abdomen-dressing intact, no drainage Extremities- Bilateral 2+ pitting edema Neuro- alert, oriented x 3; PERRL, EOMI; no focal deficits Skin- warm & dry Results & Data Results & Data Vital Signs (Past 12 Hours) Vital Signs Temp Pulse Resp BP Pulse Ox O2 Del Method 04/23/25 07:45 36.6 C 74 16 150/82 H 98 Room Air
[2025-04-23] MEDS: POTASSIUM CHLORIDE CRTAB 20 MEQ TABCR PO STA (14:56)
[2025-04-24 07:22] LABS: Anion Gap 8.0 (3-11); Blood Urea Nitrogen 7.0 mg/dl (6-23); Calcium 8.2 mg/dl (8.6-10.3); Carbon Dioxide 27.0 mmol/L (21-32); Chloride 109.0 mmol/L (98-107); Creatinine Clr Calc Pharmacy 70.6 ml/min; Glucose 115.0 mg/dl (70-99(Fasting)); Potassium 3.5 mmol/L (3.5-5.1); Sodium 144.0 mmol/L (136-145)
[2025-04-24] MEDS ORDERED: FUROSEMIDE INJ 20 MG/2 ML VIAL IV ONE (07:30)
--- NOTE | 2025-04-24 10:26 | Surgery Progress Note ---
Date of Service April 24, 2025 Assessment & Plan (1) Intussusception: (2) Mucinous adenocarcinoma of colon: Plan POD # 8 s/p ex lap, right hemicolectomy avss postop pain mild, controlled + bowel function path with mucinous adenocarcinoma however margins negative and 24/24 lymph nodes negative. Plan: Doing well from surgical standpoint for discharge Will need follow-up with Dr. Zapata next week, izabel will be removed in office low fiber diet Admission and Anticipated Discharge Date Admission Date: April 15, 2025 Subjective feeling good ready for discharge soreness in abdomen no pain tolerating low fiber diet swelling in legs seems improved + bowel movements, loose no n,v Physical Exam Constitutional: WD/WN, vitals as above + obese, cooperative and comfortable; no acute distress and not ill appearing Respiratory: normal respiratory effort; no respiratory distress and no labored breathing Gastrointestinal (Abdomen): Inspection/Auscultation: abdomen normal to inspection and + abdominal surgical incision (c/d/i with izabel, mild reactive erythema at izabel); abdomen not distended Percussion/Palpation: abdomen soft; abdomen nontender, no guarding and abdomen not rigid Skin: no rashes, warm and dry Psychiatric: Orientation: alert and oriented x 3 Results & Data Vital Signs (Past 12 Hours) Vital Signs Temp Pulse Resp BP Pulse Ox O2 Del Method 04/24/25 07:18 36.6 C 74 15 148/91 H 93 Room Air Laboratory Results 04/24/25 04/24/25 04/23/25 Range/Units 07:16 06:38 20:21 Sodium 144 (136-145) mmol/L Potassium 3.5 (3.5-5.1) mmol/L Chloride 109 H (98-107) mmol/L Carbon Dioxide 27 (21-32) mmol/L Anion Gap 8 (3-11) BUN 7 (6-23) mg/dl Creatinine 0.75 (0.6-1.2) mg/dl Est Cr Clr Drug Dosing 70.6 ml/min eGFR 82.46 BUN/Creatinine Ratio 9.3 L (10-20) Glucose 115 H (70-99(Fasting)) mg/dl POC Glucose 108 H 121 H (70-99) mg/dl Calcium 8.2 L (8.6-10.3) mg/dl 07/31/25 07/31/25 Range/Units 16:25 11:22 Sodium (136-145) mmol/L Potassium (3.5-5.1) mmol/L Chloride (98-107) mmol/L Carbon Dioxide (21-32) mmol/L Anion Gap (3-11) BUN (6-23) mg/dl Creatinine (0.6-1.2) mg/dl Est Cr Clr Drug Dosing ml/min eGFR BUN/Creatinine Ratio (10-20) Glucose (70-99(Fasting)) mg/dl POC Glucose 112 H 119 H (70-99) mg/dl Calcium (8.6-10.3) mg/dl
[2025-04-24] MEDS: FUROSEMIDE INJ 20 MG/2 ML VIAL IV ONE (10:28)
[2025-04-24] MEDS ORDERED: POTASSIUM CHLORIDE CRTAB 20 MEQ TABCR PO SCH (13:00)
[2025-04-24 14:58] VITALS: BP 135/78; PULSE 97; RESP 17; TEMP 98.8; O2SAT 94
--- NOTE | 2025-04-24 15:25 | Discharge Summary ---
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 She reports sharp lower abdominal pain that is intermittent and associated with diarrhea and nausea without vomiting. The pain is severe when it is there. She has been taking senna on an as needed basis to have bowel movements because she is constipated and thinks it is from her diabetes medication. She usually has one episode of loose stools after senna that subsides. She notes over the last four days, she has had up to 20 episodes of loose diarrhea daily. She denies recent travel or antibiotic use. She also reports feeling lightheaded for the last month, particularly with exertion, but this has been worse over the last few days as well. Denies any syncope. She presented to the PCP yesterday for the abdominal pain, diarrhea, and lightheadedness and was ordered labs and a KUB which showed moderate fecal retention. She sought evaluation in our ED because her symptoms have not improved. Denies fevers, chills, chest pain, SOB, dysuria, hematuria, hematochezia, other signs of bleeding. Admission Exam Per Admitting Provider General/Psych: WD/WN, sitting up in bed, NAD, conversing easily, euthymic affect Head: normocephalic, atraumatic Eyes: normal inspection, PERRL, conjunctivae pink, anicteric sclerae ENT: external ear and nose normal, oropharynx normal Neck: normal visual inspection, trachea midline, no thyromegaly Respiratory: normal respiratory effort, lungs clear to auscultation, no wheeze/rales/rhonchi, no accessory muscle use Cardiovascular: regular rate and rhythm, no murmur/rub/gallop, no JVD Extremities: no cyanosis or clubbing, normal peripheral pulses, no BLE edema Abdomen/GI: normal bowel sounds, soft, tender on palpation of lower quadrants Neurologic/MSK: A+Ox3, motor strength 5/5, moves all extremities Skin: no rashes, normal color, warm and dry Principal Diagnosis 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 Discharge Exam General- adult elderly female seen at bedside Eyes- PERRL, EOMI Neck- supple, no JVD, no adenopathy, Lungs- clear to auscultation and percussion Heart- regular rhythm; Abdomen-dressing intact, no drainage Extremities- Bilateral 1+ pitting edema Neuro- alert, oriented x 3; PERRL, EOMI; no focal deficits Skin- warm & dry Discharge Data Allergies Allergy/AdvReac Type Severity Reaction Status Date / Time azithromycin [From Zithromax] Allergy Intermediate Verified 04/15/25 12:48 lisinopril Allergy Intermediate Verified 04/15/25 12:48 Penicillins Allergy Intermediate Verified 04/15/25 12:48 Consultations 04/15/25 15:39 ED Decision to Admit Stat Procedures Performed Operation Date: 04/16/25 07:00 Actual Procedures p Exploratory Laparotomy(Not Applicable) - Prashanth Zapata DO s Right Hemicolectomy (Right) - Prashanth Zapata DO Ordered Studies 04/15/25 12:49 CT abd pelvis IV con only Stat 04/21/25 US venous doppler UE RT Routine Hospital Course (1) Intussusception: (2) Diarrhea: (3) Type 2 diabetes mellitus: (4) Hypertension: (5) Dyslipidemia: (6) DANYEL (obstructive sleep apnea): Plan Ms Zelaya is a 75 year old female with PMH significant for type 2 diabetes, dyslipidemia, CKD III, COPD, DANYEL, 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 Patient was accepted to acute rehab. Patient was recommended to follow-up with PCP, surgeon and oncology as outpatient; she verbalized understanding. #SVT of RUE RUE US revealed SVT in antecubital fossa, no DVT Prescribed prophylactic Lovenox for 7 more days; will need repeat venous duplex in 1 week. Communicated that with the provider at acute rehab. #Fever resolved brief low grade fever, UA with small colonies but no urinary symptoms, leukocytosis resolved, blood cultures negative Discontinue IV antibiotics encourage Is/Flutter valve and ambulation #Chronic Anemia, AVINASH hgb stable this admission s/p IV Venofer x 1. PO iron after recovery from surgery #Hypokalemia Received repletion Continue to replete as needed #Diarrhea POA, resolved likely secondary to intussusception Stool PCR neg #Type 2 diabetes Hold home metformin and glipizide BSG ACHS and SSI while inpatient #Hypertension Continue hydralazine and metoprolol Restart diuretics when able. #Dyslipidemia Continue rosuvastatin #Cardiac pacemaker in situ Continue baby aspirin #DANYEL CPAP HS #Possible pulmonary hypertension Recent echo as outpt. 03/11/25 DVT Prophylaxis: SCDs Lovenox Time spent evaluating patient, direct bedside care, chart review, placing orders, interpretation of diagnostic studies, discussion with consultants, patient, and family members, as well as other required patient management activities is 50 minutes Please note the above document was generated using voice recognition software. It may contain grammatical, syntax or spelling errors. Any formal questions or concerns about the content, text or information contained within the body of this dictation should be directly addressed to the provider for clarification Total Time Total Time Spent Total Time Spent (In Minutes): 45 Discharge Plan Discharge Items Patient Disposition: Transfer Inpatient Rehab Fac Reason For Visit: ABDOMINAL PAIN Discharge Diagnosis: exploratory laparotomy right hemicolectomy for intussusception Condition on Discharge: Good Activity: Per Instructions section Lifting: No more than 10 pounds Bathing Comment: may shower; no soaking in tubs/pools x 2 weeks Exercise/Sports: Wait until after follow-up appointment Driving/Machine Use: no driving while taking narcotics for pain Non-emergency contact: Primary Care Provider and Surgeon Call non-emergency contact if: you have any medication questions, your symptoms worsen, your pain is not controlled, you have a fever, your temperature is above 101.5, your wound has increased redness, your wound has increased drainage and your wound pain has increased Follow-up/Referrals: Prashanth Zapata, [Physician] - (please call to schedule follow up in the office next week for staple removal) Delores Gonzalez, DO [Primary Care Provider] - Diet: Low Fiber Addtl Attending Provider Instructions: You are prescribed Lasix to be taken once a day for 4 days along with potassium chloride tablet twice a day. Please hold onto hydrochlorothiazide while you are taking Lasix. Once your leg swelling has improved; you can go back on hydrochlorothiazide. Please follow-up with your primary care doctor and oncology as we discussed. Continue Lovenox for 7 more days and repeat venous ultrasound of the right upper extremity to see if the clot has increased. SPECIAL CARE INSTRUCTIONS: * You have izabel in your skin incisions that will be removed at your follow up appointment (around 14 days from surgical date) If you do not have any drainage from your incisions you may keep them open to air. Otherwise is needed or for comfort you may place dry gauze and tape over the incisions and change daily. * You may shower. NO soaking in pools or baths for 2 weeks * No lifting greater than 10lbs. No strenuous exercise until cleared by surgeon. Light walking is accepted. * No driving while taking narcotic pain medication; wait at least 3 days * No drinking alcohol while taking narcotic pain medication * May use Tylenol over the counter for pain as tolerated. Do not exceed 3grams of Tylenol per 24 hours * Expect some swelling and bruising. * Diet- you may resume a low fiber diet Call your doctor if: * Temperature above 101 degrees, nausea/vomiting, fever/chills * Pain not relieved by pain medicine ordered * There is increased drainage or redness from any incision * You have any unanswered questions or concerns [phone]. FOLLOW UP VISIT: If not already scheduled, please call the office for a follow-up visit. Office n Pending Studies at Discharge: Yes Studies:: surgical pathology Stand-Alone Forms: My [facility] Skilled Items Patient informed of condition?: Yes DNR: No Discharge Level of Care: Acute rehab Communicable Disease: No Discharge Prognosis: Stable Lines: None Urinary Catheter: No Medications and DC Order Prescriptions: New potassium chloride 20 mEq Tablet,Er Particles/Crystals 20 meq PO BID 5 Days Qty: 10 0RF cyanocobalamin (vitamin B-12) 500 mcg Tablet 500 mcg PO QAM Qty: 30 0RF oxycodone 5 mg Tablet 5 mg PO Q6H PRN (Reason: pain) Qty: 1 0RF furosemide [Lasix] 20 mg tablet 20 mg PO DAILY 4 Days Qty: 4 0RF enoxaparin [Lovenox] 40 mg/0.4 mL syringe 40 mg subcut DAILY 7 Days Qty: 2.8 0RF Continued hydralazine 25 mg tablet 25 mg PO TID albuterol sulfate 90 mcg/actuation HFA aerosol inhaler 2 puff INHALATION Q4H PRN (Reason: Wheezing) aspirin 81 mg Tablet,Chewable 81 mg PO HS glipizide 10 mg tablet extended release 24hr 20 mg PO QAM spironolactone 25 mg tablet 12.5 mg PO DAILY metformin 500 mg tablet extended release 24 hr 500 - 1,000 mg PO DIRECTED Patient Comments: Take 500mg in the morning and 1000mg in the evening rosuvastatin 40 mg tablet 20 mg PO DAILY metoprolol tartrate 25 mg tablet 25 mg PO BID Held hydrochlorothiazide 25 mg tablet 25 mg PO DAILY Hold Instructions: Resume on 04/30/25. Discharge Orders: Discharge Order (Routine); Ordered 04/24/25 Ordered By: Esteban Flores Admission Data Admit Date/Time: 04/15/25 16:35 Attending Provider: Esteban Flores Admit Provider: Esteban Flores Primary Care Provider: Delores Gonzalez Other Providers: Esteban Flores; [facility] Other Interventions: Discharge Summary Assessment (RN) Last Done: 04/24/25 13:20
== END 2025-04-24 15:30 | DRG 345 ==
LOC: ED 12:12 → SUATTDRO 16:35 → 2W 16:35 → 3E 04-19 11:31